=== PATIENT | male | born 1940 | race Caucasian/White ===

== ENCOUNTER → 2020-04-27 15:16 | Outpatient (BNVA) | payer OTHER, SELFPAY | PROVIDERS: Family Provider Family Medicine; Visit Provider Nurse Practitioner Family | DX: Z20.828 Contact with and (suspected) exposure to other viral communicable diseases (principal); J06.9 Acute upper respiratory infection, unspecified | CPT/HCPCS: 87635 ==

== ENCOUNTER → 2021-03-09 18:10 | Outpatient (BNVA) | payer MEDICARE, SELFPAY | PROVIDERS: Family Provider Family Medicine; Visit Provider Registered Nurse Neonatal Intensive Care | DX: Z20.822 Contact with and (suspected) exposure to COVID-19 (principal) | CPT/HCPCS: 87635 ==

== ENCOUNTER 2023-09-09 22:01 | Inpatient (IN) | payer MEDICARE, SELFPAY ==
[2023-09-09 22:02] VITALS: BP 162/84; PULSE 95; RESP 18; TEMP 36.4; O2SAT 96; BMI 36.9
--- NOTE | 2023-09-09 22:04 | XRR_ITS ---
PROCEDURE INFORMATION: Exam: XR Left Hip Exam date and time: 09/09/2023 10:26 PM Age: 83 years old Clinical indication: Injury or trauma; Fall; Other: Pain; Additional info: Fall, pain TECHNIQUE: Imaging protocol: Radiologic exam of the left hip. Views: 2 or 3 views hip with pelvis when performed. COMPARISON: No relevant prior studies available. FINDINGS: Bones/joints: On the AP view, there is concern for subcapital left femur fracture with increased density along the subcapital femoral neck and foreshortening of the femoral neck. No definite fracture on the frogleg view. There are severe degenerative changes in the left hip with prominent ring of osteophytes surrounding the left femoral head neck junction. No dislocation. No fracture in the visualized left pelvis. Soft tissues: Unremarkable. XR/XR hip LT 2-3V wo/w pel* [id number] IMPRESSION: Foreshortened appearance of the left subcapital femoral neck with concern for mildly impacted fracture on one view. CT scan is recommended for further evaluation. Note is made that the patient has severe degenerative changes in the hip with a large ring osteophytes surrounding the left femoral head neck junction.
--- NOTE | 2023-09-09 22:17 | ED_ITS ---
HPI - Fall 2 General: Chief Complaint: Fall Stated Complaint: fall, hip pain, skin tear Time Seen by Provider: 09/09/23 22:02 History of Present Illness: Patient arrived via EMS from his home with complaints of fall on his outdoor steps patient landed on his left hip and is having left hip pain and discomfort. Worse with movement of his left lower extremity. Patient did not hit anywhere else denies loss of consciousness or other complaints. Review of Systems 2 General: Reports: 10 or more systems reviewed and unremarkable except in HPI and below PFSH ED 2 PFSH: Medical History (Updated 09/10/23 @ 00:05 by Marvin Ni MD) Hyperlipidemia Hypertension Surgical History (Updated 09/10/23 @ 00:06 by Marvin Ni MD) No pertinent past surgical history Social History (Updated 09/10/23 @ 00:05 by Marvin Ni MD) Smoking and tobacco/nicotine status: former use of tobacco/nicotine Alcohol intake: former Substance/Drug Use: never Physical Exam 2 Const: COMMON NORMALS: no acute distress, average body habitus, patient oriented x3, no limitations, healthy appearing, alert and well nourished HENMT: COMMON NORMALS: normocephalic, atraumatic, hearing grossly normal bilaterally, external ears normal, Normal external nose present, moist oral mucous membranes and oropharynx normal HEAD & SCALP: normocephalic and atraumatic NOSE: Normal external nose present EXTERNAL EAR: Yes external ears normal Neck/C-Spine: COMMON NORMALS: full ROM, no lymphadenopathy, supple, no meningeal signs and no JVD Chest: COMMONS NORMALS: normal inspection of the chest and normal palpation of entire chest wall Resp: COMMON NORMALS: normal respiratory effort, No retractions, No use of accessory muscles and clear to auscultation bilaterally AUSCULTATION: clear to auscultation bilaterally Cardio: COMMON NORMALS: no JVD, regular rate, regular rhythm, S1 normal heart sound present, S2 normal heart sound present, No gallops present (Cardio), No clicks present (Cardio) and No murmurs present (Cardio) RATE: regular rate RHYTHM: regular rhythm HEART SOUNDS: S1 normal heart sound present and S2 normal heart sound present GI: COMMON NORMALS: Normal to inspection, nondistended, normoactive bowel sounds present, Soft to palpation, non-tender, No hepatosplenomegaly present and no masses PALPATION: Yes Soft to palpation and Yes No hepatosplenomegaly present Extremity: NARRATIVE EXTREMITY EXAM: Tenderness with palpation over left hip region. No obvious rotation, deformity, crepitus Neuro: COMMON NORMALS: patient oriented x3 SENSORIUM/ORIENTATION: Yes alert MENINGEAL SIGNS: Yes no meningeal signs Course 2 Vital Signs: Vital signs: Vital Signs Temperature 97.5 F L 09/09/23 22:02 Pulse Rate 81 09/10/23 00:01 Respiratory Rate 16 09/10/23 00:01 Blood Pressure 133/81 09/10/23 00:01 Pulse Oximetry 98 09/10/23 00:01 Oxygen Delivery Me thod Nasal Cannula 09/10/23 00:12 Oxygen Flow Rate 2 09/10/23 00:12 MDM - Fall Medical Decision Making Patient had x-rays of his femur, chest and hip and pelvis, they saw a left subcapital femoral neck fracture possible, severe degenerative changes of the knees. Chest x-ray was negative. Dr. Christianson was consulted who agreed that he will probably take him to surgery for this in the morning, CBC CMP PT/INR type and screen and EKG are all pending. Dr. Welch was consulted who agreed to place patient inpatient for further evaluation and treatment. Will also get a CT scan of the left hip as recommended by the radiologist. Medical Records I reviewed the patient's medical records. Lab Data I reviewed the patient's lab results. 09/09/23 22:52 09/09/23 22:52 Radiology Impressions Hip/Pelvis X-Ray 09/09/23 22:04 IMPRESSION: Foreshortened appearance of the left subcapital femoral neck with concern for mildly impacted fracture on one view. CT scan is recommended for further evaluation. Note is made that the patient has severe degenerative changes in the hip with a large ring osteophytes surrounding the left femoral head neck junction. Chest X-Ray 09/09/23 22:49 IMPRESSION: No acute findings. Unchanged exam. Femur X-Ray 09/09/23 22:55 IMPRESSION: 1. Subtle cortical step-off subcapital left femoral neck concerning for acute subcapital femur fracture best seen on the AP view. 2. Severe degenerative changes of the knee. No additional acute fracture. Laboratory Results WBC 7.86 10^3/uL (3.29-11.43) 09/09/23 22:52 RBC 4.95 10^6/uL (3.85-5.65) 09/09/23 22:52 Hgb 14.60 g/dL (11.27-16.99) 09/09/23 22:52 Hct 44.5 % (37-53) 09/09/23 22:52 MCV 89.9 fl (82-101) 09/09/23 22:52 MCH 29.5 pg (27-33) 09/09/23 22:52 MCHC 32.8 g/dL (30-55) 09/09/23 22:52 RDW 13.2 % (12.1-15.1) 09/09/23 22:52 Plt Count 239 10^3/cmm (157-399) 09/09/23 22:52 MPV 10.3 fL (7.4-10.4) 09/09/23 22:52 Neut % (Auto) 60.6 % 09/09/23 22:52 Lymph % (Auto) 26.0 % 09/09/23 22:52 Alexander % (Auto) 9.8 % 09/09/23 22:52 Eos % (Auto) 2.2 % 09/09/23 22:52 Baso % (Auto) 0.9 % 09/09/23 22:52 Neut # (Auto) 4.77 10^3/uL (1.8-7.7) 09/09/23 22:52 Lymph # (Auto) 2.0 10^3/uL (0.8-4.8) 09/09/23 22:52 Alexander # (Auto) 0.8 10^3/uL (0.2-0.9) 09/09/23 22:52 Eos # (Auto) 0.2 10^3/uL (0.0-0.8) 09/09/23 22:52 Baso # (Auto) 0.1 10^3/uL (0.0-0.1) 09/09/23 22:52 Nucleated RBC % (auto) 0 % 09/09/23 22:52 Nucleated RBCs # 0.0 /100WBC 09/09/23 22:52 PT 12.90 SECONDS (12.1-14.9) 09/09/23 22:52 INR 0.95 (0.8-1.2) 09/09/23 22:52 Sodium 140 mmol/L (136-145) 09/09/23 22:52 Potassium 4.5 mmol/L (3.5-5.1) 09/09/23 22:52 Chloride 102 mmol/L (98-107) 09/09/23 22:52 Carbon Dioxide 28 mmol/L (22-29) 09/09/23 22:52 Anion Gap 14.5 (5-19) 09/09/23 22:52 BUN 22 mg/dL (8-23) 09/09/23 22:52 Creatinine 0.7 mg/dL (0.7-1.2) 09/09/23 22:52 GFR Calculation Not Reportable 09/09/23 22:52 Glucose 107 mg/dL (65-115) 09/09/23 22:52 Calculated Osmolality 294 mOsm/kg (285-295) 09/09/23 22:52 Calcium 9.4 mg/dL (8.5-10.5) 09/09/23 22:52 Total Bilirubin 0.3 mg/dL (0.15-1.2) 09/09/23 22:52 AST 14 U/L (0-40) 09/09/23 22:52 ALT 15 U/L (0-41) 09/09/23 22:52 Alkaline Phosphatase 105 U/L (40-130) 09/09/23 22:52 Troponin T Baseline 14 ng/L (0-15) 09/09/23 22:52 Total Protein 7.4 g/dL (6.6-8.7) 09/09/23 22:52 Albumin 4.3 g/dL (3.5-5.2) 09/09/23 22:52 Globulin 3.1 g/dL (1.3-4.6) 09/09/23 22:52 Blood Type B Positive 09/09/23 23:27 Rho(D) Type Rh positive 09/09/23 23:27 Antibody Screen Negative 09/09/23 23:27 All radiology interpretation(s) finalized by discharge Discharge Plan Discharge Patient Disposition: Admitted As Inpatient Admit Provider: Marvin Ni Clinical Impression: Closed fracture of left hip, Hypertension, Hyperlipidemia Condition: Stable Coding Level of Care Code ED Bone Crusher for Bethany Mccauley
--- NOTE | 2023-09-09 22:49 | ECG_ITS ---
[facility] Test Date: 2023-09-09 Pat Name: Rey Mcleod Department: Room: Gender: Male Didactic Instructor: : 1940 Requested By: Constantino Thakur Order Number: [id number] Gunnar MD: Hugh Fleming M.D. Measurements Intervals [place] Rate: 72 P: 0 VA: 0 QRS: -41 QRSD: 155 T: 20 QT: 393 QTc: 432 Interpretive Statements SINUS RHYTHM WITH POSSIBLE 2ND DEGREE AV BLOCK, MOBITZ TYPE II LEFT AXIS DEVIATION [QRS AXIS < -30] RIGHT BUNDLE BRANCH BLOCK [120+ ms QRS DURATION, UPRIGHT V1, 40+ ms S IN I/aVL/V4/V5/V6] POSSIBLE ANTERIOR MYOCARDIAL INFARCTION , OF INDETERMINATE AGE [30 ms Q WAVE IN V3/V4, OR R < 0.2 mV IN V4] Compared to ECG 07/03/2018 09:46:34 Left-axis deviation now present Myocardial infarct finding now present First degree AV block no longer present Electronically Signed On 09-10-2023 9:16:13 CDT by Hugh Fleming M.D. [id number] paiz
--- NOTE | 2023-09-09 22:49 | XRR_ITS ---
PROCEDURE INFORMATION: Exam: XR Chest Exam date and time: 09/09/2023 10:55 PM Age: 83 years old Clinical indication: Other: HTN TECHNIQUE: Imaging protocol: Radiologic exam of the chest. Views: 1 view. COMPARISON: CR XR chest 1V [id number] 07/03/2018 10:07 AM FINDINGS: Lungs: Unremarkable. No consolidation. Pleural spaces: Unremarkable. No pleural effusion. No pneumothorax. Heart/Mediastinum: Unchanged cardiomegaly. Bones/joints: No acute abnormality. XR/XR chest 1V portable [id number] IMPRESSION: No acute findings. Unchanged exam.
--- NOTE | 2023-09-09 22:55 | XRR_ITS ---
PROCEDURE INFORMATION: Exam: XR Left Femur Exam date and time: 09/09/2023 11:02 PM Age: 83 years old Clinical indication: Injury or trauma; Fall; Other: Pain; Additional info: Fall hip FX TECHNIQUE: Imaging protocol: Radiologic exam of the left femur. Views: 2 views. COMPARISON: CR (PELVIS, ) 09/09/2023 10:26 PM FINDINGS: Bones/joints: Subtle cortical step-off subcapital left femoral neck concerning for acute fracture best seen on the AP view. No dislocation. No fracture in the visualized left hemipelvis. No acute fracture in the mid to distal femur. Severe degenerative changes left knee greatest in the patellofemoral compartment. Soft tissues: Unremarkable. XR/XR femur LT min 2V* [id number] IMPRESSION: 1. Subtle cortical step-off subcapital left femoral neck concerning for acute subcapital femur fracture best seen on the AP view. 2. Severe degenerative changes of the knee. No additional acute fracture.
[2023-09-09 22:57] LABS: Basophils # 0.1 10^3/uL (0.0-0.1); Basophils % 0.9 %; Eosinophils # 0.2 10^3/uL (0.0-0.8); Eosinophils % 2.2 %; Hematocrit 44.5 % (37-53); Mean Corpuscular HGB Conc 32.8 g/dL (30-55); Mean Corpuscular Hemoglobin 29.5 pg (27-33); Mean Corpuscular Volume 89.9 fl (82-101); Mean Platelet Volume 10.3 fL (7.4-10.4); Monocytes # 0.8 10^3/uL (0.2-0.9); Monocytes % 9.8 %; Neutrophils # 4.77 10^3/uL (1.8-7.7); Neutrophils % 60.6 %; Nucleated Red Blood Cells % 0 %; Platelet Count 239 10^3/cmm (157-399); Red Blood Count 4.95 10^6/uL (3.85-5.65); Red Cell Distribution Width 13.2 % (12.1-15.1); White Blood Count 7.86 10^3/uL (3.29-11.43)
[2023-09-09 23:09] LABS: INR 0.95 (0.8-1.2)
[2023-09-09 23:18] LABS: Alanine Aminotransferase 15 U/L (0-41); Albumin Level 4.3 g/dL (3.5-5.2); Alkaline Phosphatase 105 U/L (40-130); Anion Gap 14.5 (5-19); Aspartate Amino Transferase 14 U/L (0-40); Blood Urea Nitrogen 22 mg/dL (8-23); Calcium 9.4 mg/dL (8.5-10.5); Carbon Dioxide 28 mmol/L (22-29); Chloride 102 mmol/L (98-107); Creatinine Clr Calc Pharmacy 85.3409; Globulin 3.1 g/dL (1.3-4.6); Glucose 107 mg/dL (65-115); Osmolality Calculated 294 mOsm/kg (285-295); Potassium 4.5 mmol/L (3.5-5.1); Sodium 140 mmol/L (136-145); Total Bilirubin 0.3 mg/dL (0.15-1.2); Total Protein 7.4 g/dL (6.6-8.7)
[2023-09-09 23:25] VITALS: RESP 18
[2023-09-09] MEDS: morphine 4 mg/mL SDV 1 mL IVP (23:25)
[2023-09-09] MEDS: ondansetron 2 mg/ML SDV 2 mL 4 MG IVP (23:25)
--- NOTE | 2023-09-09 23:33 | CTR_ITS ---
PROCEDURE INFORMATION: Exam: CT Left Lower Extremity Without Contrast, Hip Exam date and time: 09/10/2023 12:15 AM Age: 83 years old Clinical indication: Injury or trauma; Fall; Other: Pain; Additional info: Fall hip FX TECHNIQUE: Imaging protocol: CT of the left lower extremity without contrast was performed. Exam focused on the hip. Radiation optimization: All CT scans at this facility use at least one of these dose optimization techniques: automated exposure control; mA and/or kV adjustment per patient size (includes targeted exams where dose is matched to clinical indication); or iterative reconstruction. COMPARISON: CR (PELVIS, ) 09/09/2023 10:26 PM RADIATION DOSE METRICS: Total DLP (mGy-cm): 650.1 FINDINGS: Bones/joints: There is an impacted left subcapital femur fracture. No dislocation. There are moderate degenerative changes in the left hip and sacroiliac joint. No additional acute fracture. There are moderate degenerative changes in the left hip with subchondral cysts especially in the acetabulum. Soft tissues: There is soft tissue edema adjacent to the left hip fracture. Urinary bladder: The bladder is distended and there is a posterior left bladder diverticulum. Reproductive: The prostate demonstrates marked nonspecific enlargement. The seminal vesicles are normal. The prostate demonstrates nonspecific parenchymal calcifications. CT/CT hip LT wo con* [id number] IMPRESSION: There is an impacted left subcapital femur fracture.
[2023-09-09 23:38] VITALS: BP 138/74; PULSE 86; RESP 16; O2SAT 92
--- NOTE | 2023-09-09 23:48 | ECG_ITS ---
[facility] Test Date: 2023-09-09 Pat Name: Rey Mcleod Department: Room: 271 Gender: Male C Architect: : 1940 Requested By: Constantino Thakur Order Number: [id number] Gunnar MD: Hugh Fleming M.D. Measurements Intervals [place] Rate: 72 P: 0 MI: 0 QRS: -41 QRSD: 155 T: 20 QT: 393 QTc: 432 Interpretive Statements SINUS RHYTHM WITH POSSIBLE 2ND DEGREE AV BLOCK MOBITZ TYPE II LEFT AXIS DEVIATION [QRS AXIS < -30] RIGHT BUNDLE BRANCH BLOCK [120+ ms QRS DURATION, UPRIGHT V1, 40+ ms S IN I/aVL/V4/V5/V6] POSSIBLE ANTERIOR MYOCARDIAL INFARCTION , OF INDETERMINATE AGE [30 ms Q WAVE IN V3/V4, OR R < 0.2 mV IN V4] Compared to ECG 07/03/2018 09:46:34 Left-axis deviation now present Myocardial infarct finding now present First degree AV block no longer present Electronically Signed On 09-10-2023 9:16:32 CDT by Hugh Fleming M.D. [id number] paiz
[2023-09-10] VITALS (16 sets, daily range): BP systolic 130–186; BP diastolic 65–94; PULSE 80–105; RESP 16–20; TEMP 36.1–37.4; O2SAT 91–98; BMI 36.1
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
--- NOTE | 2023-09-10 00:05 | PC.NURSE ---
Report was called to JEREMIAH Muñoz on Med-Surg. All questions and concerns were addressed at time of report.
[2023-09-10 00:06] LABS: Troponin(5th) Baseline 14 ng/L (0-15)
[2023-09-10 01:13] LABS: Troponin 5 2HR 12.88 ng/L (0-15)
[2023-09-10 01:16] LABS: Troponin 5 2HR Delta -1.12 ABS# (0-10)
[2023-09-10 01:23] LABS: Thyroid Stimulating Hormone 2.67 uIU/mL (0.27-4.20)
[2023-09-10] MEDS: pantoprazole 40 mg SDV IVP (01:57)
[2023-09-10 02:37] LABS: Urine Appearance Cloudy (CLEAR); Urine Color Yellow (Yellow); pH Urine 7 (5-7)
[2023-09-10 02:38] LABS: Add Urine Culture? Yes; Add Urine Microscopic? YES; Bacteria Urine 3+ /hpf; Bilirubin Urine Neg (Negative); Blood Urine 3+ (Negative); Glucose Urine UA Norm (Normal); Ketones Urine Negative (Negative); Leukocyte Esterase Urine 2+ (Negative); Mucus Urine 3+ /hpf; Nitrate Urine Positive (Negative); Protein Urine Neg (Negative); RBC Urine 15-25 /hpf (0-2); Squamous Epithelial Cell Urine 0-4 /hpf (0-5); Urobilinogen Urine Neg (Negative); WBC Urine 55-80 /hpf (0-5)
[2023-09-10 05:15] LABS: Troponin 5 6HR 10.62 ng/L (0-15); Troponin 5 6HR Delta -3.38 ng/L (0-12)
--- NOTE | 2023-09-10 09:01 | PC.PHAR ---
MEDICATIONS VERIFIED BY WHAT PT STS HE IS CURRENTLY TAKING- [facility] - WILL UPDATE WHEN RECEIVED
[2023-09-10] MEDS: morphine 4 mg/mL SDV 1 mL 2 MG IVP (11:14)
[2023-09-10] MEDS: dextrose 5%-sod chloride 0.9% 1,000 ML 50 ML IV (11:19)
--- NOTE | 2023-09-10 11:33 | PC.NURSE ---
This RN rounding on patient and patient expressed that he was aggravated at the CELLAR SUPERVISOR due to having a full urinal at the bedside not being emptied. Patient stated he asked the CELLAR SUPERVISOR twice to empty it and walked by it without emptying it. Patient said he called his to come empty it. This nurse spoke with nurse quarrying manager and charge nurse about the situation and this nurse let the patient know that I would be more than willing to empty it for him. This nurse emptied urinal during this round. Patient rated pain an 8/10 and medication was administered by this nurse. Patient has since stated he is calm and understanding.
--- NOTE | 2023-09-10 14:36 | P.PN_ITS ---
Subjective 2 Subjective: Overnight labs and H&P reviewed. Patient planned for surgical intervention later today at 5 PM. No current acute complaints. Has mild pain. Anxious about surgery. Medications: Reviewed: Yes Vitals/I&O/Wt Last Vital Signs Temp 98.0 F 09/10/23 07:42 Pulse 101 H 09/10/23 11:44 Resp 17 09/10/23 11:44 BP 186/94 09/10/23 11:44 Pulse Ox 96 09/10/23 11:44 O2 Del Method Room Air 09/10/23 11:44 O2 Flow Rate 2 09/10/23 00:12 09/09/23 09/10/23 09/10/23 22:59 06:59 14:59 Output Total 400 / 400 400 / 400 Balance -400 / -400 -400 / -400 Weight last 48 hrs Weight 111.782 kg Weight 110.903 kg Weight 113.398 kg Physical Exam 2 Narrative: General: No acute distress, AO x3 HEENT: PERRLA, pupils bilaterally equal and reactive, pallors not present Chest: Normal vesicular breath sounds, no added sounds, equal good air entry bilaterally CVS: S1-S2 regular, no murmurs, no tachycardia, no gallops, no rubs Abdomen: Soft, nontender, no organomegaly, bowel sounds present Neuro: No focal deficits, no facial deformity, AO x3, power 5/5 in all limbs Extremities: No edema clubbing or cyanosis. Data 09/09/23 22:52 09/09/23 22:52 A&P Assessment and plan (1) Closed fracture of left hip: Plan for surgical intervention today. N.p.o. for surgery D5 normal saline at 50 cc an hour while awaiting surgical intervention. As needed morphine for pain management. Qualifiers: Encounter type: initial encounter Qualified Code(s): S72.002A - Fracture of unspecified part of neck of left femur, initial encounter for closed fracture (2) Obstructive sleep apnea: He uses CPAP at nighttime. CPAP ordered for hospital use. Denies any current dyspnea chest pain palpitations. (3) Right bundle branch block: Incidentally noted right bundle branch block with PVCs Patient denies any current chest pain dyspnea or palpitations. Likely to be an incidental finding, perhaps related to long standing sleep apnea, no prior EKG to compare. Troponin series unremarkable. (4) Hypertension: Continue home dose of lisinopril 5 mg p.o. every night. As needed hydralazine as needed Qualifiers: Hypertension type: unspecified Qualified Code(s): I10 - Essential (primary) hypertension (5) Hyperlipidemia: Continue atorvastatin 20 mg p.o. daily Qualifiers: Hyperlipidemia type: unspecified Qualified Code(s): E78.5 - Hyperlipidemia, unspecified Plan DVT prophylaxis: Lovenox to be started postsurgery DNR/DNI Attestations 2 Medical Necessity Statement*: Continued admission for surgical intervention today. Coding Level of Care Code Acute Code for [facility] Fwd Diagnoses Closed fracture of left hip S72.002A Encounter type: initial encounter Obstructive sleep apnea G47.33 Right bundle branch block I45.10 Hypertension I10 Hypertension type: unspecified Hyperlipidemia E78.5 Hyperlipidemia type: unspecified
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
[2023-09-10] MEDS: hyDRALAzine 20 mg/mL INJ 1 mL 10 MG IVP (15:14)
--- NOTE | 2023-09-10 15:17 | PC.NURSE ---
Patient left the floor at 1517 with surgery staff. Given 10 mg IV push Hydralazine for blood pressure 165/73 prior to leaving the floor. Patient was called per request that he was leaving the floor, but no answer.
[2023-09-10] MEDS: sodium chloride 0.9% 1,000 ML 30 ML IV (15:30)
[2023-09-10] MEDS: acetaminophen 1,000 MG/100 ML PIGGYBACK 400 MG IV (15:33)
[2023-09-10] MEDS: ketorolac 30 mg/mL INJ IVP (15:34)
[2023-09-10] MEDS: vancomycin 1,500 MG/300 ML PIGGYBACK 200 MG IV (15:51)
[2023-09-10 16:39] LABS: NT Pro B Type Natriuretic Pept 107 pg/mL (0-450)
--- NOTE | 2023-09-10 16:42 | P.ANESASSM_ITS ---
Pre-Anesthetic Assessment Height/Weight: Height 1.75 m Weight 111.782 kg Temp Pulse Resp BP Pulse Ox O2 Del Method O2 Flow Rate 99.3 F 90 16 141/69 94 Room Air 2 09/10/23 15:25 09/10/23 15:25 09/10/23 15:25 09/10/23 15:25 09/10/23 15:25 09/10/23 15:25 09/10/23 00:12 Preop Diagnosis: Left femoral neck fracture Operation Date: 09/10/23 17:05 Proposed Procedures p Hemiarthroplasty Hip(Left) - Rishabh Christianson, Familial anesthetic complications: None Was Beta Clem taken within 24 hours: N/A Was Clonidine taken within 24 hours: N/A Last intake: > 8hrs Social No alcohol and No tobacco Exam alert, oriented x 3, clear to auscultation bilaterally and regular rate & rhythm Airway Mallampati: Class III Dentition: other (missing) Pulmonary Sleep Apnea CV/HEM Hypertension RBBB Metabolic Hyperlipidemia and Morbid Obesity Anesthetic Plan ASA status: 3 Anesthesia: General Risk of > 500 ml blood loss (7ml/kg in children): No Other Pertinent Information Discussed patient's code status during surgery with family at bedside. States he is ok with intubation, shocks, fluid resuscitation and pharmaceutical interventions. Does not wish to have chest compressions. Medications/Allergies Home Medications Medication Instructions Recorded Confirmed Last Taken Type atorvastatin 20 mg tablet 20 mg PO QPM 09/10/23 09/10/23 Unknown History cholecalciferol (vitamin D3) 50 50 mcg PO QPM 09/10/23 09/10/23 Unknown History mcg (2,000 unit) capsule (Vitamin D3) lisinopril 10 mg tablet 5 mg PO QPM 09/10/23 09/10/23 Unknown History tamsulosin 0.4 mg capsule 0.8 mg PO QPM 09/10/23 09/10/23 Unknown History Allergies Allergy/AdvReac Type Severity Reaction Status Date / Time cephalexin [From Keflex] Allergy Intermediate Rash Verified 09/09/23 22:07 Current Medications Generic Name Dose Route Start Last Admin Trade Name Freq PRN Reason Stop Dose Admin Hydralazine HCl 10 mg 09/10/23 14:36 09/10/23 15:14 Hydralazine 20 Mg/Ml Inj 1 Ml IVP 10 mg Q4H PRN Administration SBP > 160 Dextrose/Sodium Chloride 1,000 mls @ 50 mls/hr 09/10/23 11:00 09/10/23 11:19 Dextrose 5%-Sod Chloride 0.9% IV 50 mls/hr .Q20H JOSEPH Administration Vancomycin/PEG/NADA/Lysine/Water 1,500 mg in 300 mls @ 200 mls/hr 09/10/23 15:30 09/10/23 15:51 Vancocin IV 09/10/23 16:59 200 mls/hr ONCE ONE Administration Sodium Chloride 1,000 mls @ 30 mls/hr 09/10/23 15:30 09/10/23 15:30 Sodium Chloride 0.9% IV 09/11/23 15:29 30 mls/hr .Q24H JOSEPH Administration Morphine Sulfate 2 mg 09/10/23 00:08 09/10/23 11:14 Morphine 4 Mg/Ml Sdv 1 Ml IVP 2 mg Q4H PRN Administration SEVERE PAIN Pantoprazole Sodium 40 mg 09/10/23 01:00 09/10/23 01:57 Pantoprazole 40 Mg Sdv IVP 40 mg Q24H JOSEPH Administration PFSH Anesthesia Medical History (Updated 09/10/23 @ 14:41 by Silvia Drake MD) Hyperlipidemia Hypertension Surgical History (Updated 09/10/23 @ 00:06 by Marvin Ni MD) No pertinent past surgical history Social History (Updated 09/10/23 @ 00:05 by Marvin Ni MD) Smoking and tobacco/nicotine status: former use of tobacco/nicotine Alcohol intake: former Substance/Drug Use: never Data Anesthesia 09/09/23 22:52 09/09/23 22:52 Short CBC 09/09/23 Range/Units 22:52 WBC 7.86 (3.29-11.43) 10^3/uL Hgb 14.60 (11.27-16.99) g/dL Hct 44.5 (37-53) % MCV 89.9 (82-101) fl Plt Count 239 (157-399) 10^3/cmm Neut % (Auto) 60.6 % Neut # (Auto) 4.77 (1.8-7.7) 10^3/uL BMP 09/09/23 22:52 Sodium 140 Potassium 4.5 Chloride 102 Carbon Dioxide 28 BUN 22 Creatinine 0.7 Glucose 107 Calcium 9.4 Cardiac Enzymes 09/09/23 09/10/23 09/10/23 Range/Units 22:52 00:40 04:40 Troponin T Baseline 14 (0-15) ng/L Troponin T 120 Minute 12.88 (0-15) ng/L Delta Troponin T -1.12 L (0-10) ABS# Troponin T Hi Sens 6Hr 10.62 (0-15) ng/L Troponin T Hi Sens 6Hr Delta -3.38 L (0-12) ng/L NT-Pro-B Natriuret Pep 107 (0-450) pg/mL Liver Function 09/09/23 Range/Units 22:52 Total Bilirubin 0.3 (0.15-1.2) mg/dL AST 14 (0-40) U/L ALT 15 (0-41) U/L Alkaline Phosphatase 105 (40-130) U/L Albumin 4.3 (3.5-5.2) g/dL Urine 09/10/23 Range/Units 02:19 Urine Color Yellow (Yellow) Urine Appearance Cloudy A (CLEAR) Urine pH 7 (5-7) Ur Specific Andrew 1.010 (1.005-1.030) Urine Protein Neg (Negative) Urine Glucose (UA) Norm (Normal) Urine Ketones Negative (Negative) Urine Nitrate Positive H (Negative) Urine Bilirubin Neg (Negative) Ur Leukocyte Esterase 2+ H (Negative) Urine RBC 15-25 H (0-2) /hpf Urine WBC 55-80 H (0-5) /hpf Blood Bank 09/09/23 23:27 Blood Type B Positive Rho(D) Type Rh positive Antibody Screen Negative Coags 09/09/23 22:52 PT 12.90 INR 0.95 Cardiac Studies: 2 No Data to Display
--- NOTE | 2023-09-10 17:21 | W.PM.OPSUD ---
Surgery/Procedure H&P Update DATE OF PROCEDURE: September 10, 2023 DATE H&P PERFORMED: 09/10/23 H&P UPDATE INFORMATION: I have reviewed H&P completed within last 30 days, I have examined patient prior to procedure and No changes to prior documentation PREOP DIAGNOSIS: Left femoral neck fracture PRIMARY INDICATION FOR PROCEDURE: Left hip femoral neck fracture PLANNED PROCEDURE: Operation Date: 09/10/23 17:05 Proposed Procedures p Hemiarthroplasty Hip(Left) - Rishabh Christianson DO
[2023-09-10] MEDS: clindamycin 600 MG/50 ML PREMIX 100 MG IV (18:14)
[2023-09-10] MEDS: tranexamic acid 1,000 mg/10mL SDV 1000 MG IV (18:39)
--- NOTE | 2023-09-10 18:52 | PC.NURSE ---
Updated patient's family of start of surgery
[2023-09-10] MEDS: vancomycin 1,000 MG SDV 2000 MG XX (19:13)
--- NOTE | 2023-09-10 19:52 | PC.NURSE ---
Updated patient's that Doctor Christianson was beginning to close on surgery.
--- NOTE | 2023-09-10 20:21 | XRR_ITS ---
PROCEDURE INFORMATION: Exam: XR Left Hip Exam date and time: 09/10/2023 7:37 PM Age: 83 years old Clinical indication: Device placement; Other: L hip kacie; Additional info: Post op left hip kacie, do in pacu TECHNIQUE: Imaging protocol: Radiologic exam of the left hip. Views: 2 or 3 views hip with pelvis when performed. COMPARISON: CT hip LT wo con* [id number] 09/10/2023 12:15 AM FINDINGS: Bones/joints: Left hip arthroplasty changes in place with postsurgical soft tissue changes. Moderate right hip osteoarthritis. Soft tissues: See Bones/joints finding. XR/XR hip LT 2-3V wo/w pel* [id number] IMPRESSION: 1. Left hip arthroplasty changes in place with postsurgical soft tissue changes. 2. Moderate right hip osteoarthritis.
--- NOTE | 2023-09-10 20:25 | P.OP_ITS ---
Operative Report Date of procedure: September 10, 2023 Surgeon: Rishabh Christianson DO Regional Director Of Admissions: Ralph Christianson PA-C: PA was necessary for assistance in this case with leg positioning, reduction retraction and protection of neurovascular structures as well as assistance in implantation wound closure and dressing application. Procedure: Preoperative diagnosis: Left hip femoral neck fracture displaced post-op diagnosis: Same Procedure done: Left?hip?hemiarthroplasty, cemented Implants: [place] Accolade C 132 degree femoral stem size 3 Bipolar head 51 mm Femoral head +4 mm offset 8mm distal cement spacer Surgeon: Rishabh Christianson DO Estimated blood loss: 150 mL IV fluids: See anesthesia record Urine output: See anesthesia record Complications: None Findings: See operative report Condition: stable Disposition: floor Brief History: Patient was seen in the emergency department and subsequently admitted after fall.? Patient sustained a Left femoral neck fracture.? Patient was subsequently admitted by the hospitalist team for medical management and medical optimization and the orthopedic surgery team was consulted for evaluation and treatment recommendations.? At that point time discussed with patient? treatment options.? We talked about nonoperative versus operative intervention talked about the risk benefits complication alternatives to surgical nonsurgical treatment options.? Risks of surgery were discussed and pt understands and agrees to proceed with procedure.? At this point time would recommend a Left?hip?hemiarthroplasty.? This will offer patient pain control as well as early weightbearing.? Patient was medically optimized by the primary team pt was then taken to the OR.? Patient understands risk benefits complication alternativ es with surgical nonsurgical treatment options.? At this point time elects to proceed with Left?hip?hemiarthroplasty.? All questions answered.? Patient understands agrees with current plan.? All questions answered. Procedure: Patient seen evaluated the preoperative holding area.? Consent was reviewed and signed with patient.? ?Pt was seen evaluated by the anesthesia department.? Once cleared for surgery patient patient was taken back to the operative suite.? Patient was then transported onto the OR table.? pt underwent anesthesia per the anesthesia department.? Once appropriately anesthetized patient was then positioned in lateral decubitus position with the Left?hip?up.? Patient was placed on a pegboard appropriately secured to the bed all bony prominences well- padded.? Next the Left lower extremity was then prepped and draped in sterile orthopedic fashion.? Final timeout performed.? Patient received appropriate preoperative antibiotics. A standard posterolateral approach was then made over the lateral aspect of the?hip.? Sharp scalpel incision was made through skin and subcutaneous tissue I then utilized a Granado elevator to mobilize over the fascia.? The fascia was then split longitudinally with electrocautery.? Next a bursectomy was then performed.? I then placed Hohmann underneath the abductors.? The?hip?was placed under tension with internal rotation.? I then utilizing electrocautery performed a full-thickness release of the short external rotators and capsule in 1 full thick sleeve for lateral repair.? This was then taken down to the lesser trochanter.? Immediately on capsulotomy hematoma was noticed and displaced femoral neck fracture appreciated.? I then placed a Hohmann above and below the neck.? I then utilized an oscillating saw to freshen the cut this was roughly a fingerbreadth above the lesser.? Once this was performed this excess was removed with rongeur.? ?I then utilized a corkscrew to remove the head.? This was then subsequently sized and measured to be a 51 mm head size.? I then thoroughly irrigated the acetabulum.? A Hohmann was placed anteriorly and thorough inspection of the acetabulum no significant arthritic changes were noted.? I then utilized a rongeur and Bovie to remove the pulvinar.? Once this was performed I then subsequently took my trial 51 mm head and trialed this which had excellent fit and appropriate suction fit noted.? This was then subsequently removed. Once this was performed I irrigated the socket and then turned my attention towards the femoral preparation.? I utilized Bovie and rongeur to remove the soft tissue off of the saddle.? Once this was done a box osteotome followed by a canal finder and? lateralizing rattail rasp was used to appropriately lateralized in the canal.? Next I then subsequently broached to a size 3 Accolade C. [place] femoral stem which had appropriate fixation.? I was able to trial with this and this appeared to be appropriate length with ability to add slight offset if needed once cemented.? Once this was done I then removed the size 3 femoral stem and then subsequently proceeded with standard cementation technique.? Cement was mixed on the back table the final implant was opened and appropriately measurement on distal cement plug to accommodate the cement mantle and femoral stem.? This was set and impacted in place to appropriate depth.? Next I utilized the cement brush thoroughly irrigated the canal and then dry the canal tampon.? Once cement was appropriately mixed and ready for cementation informed anesthesia and they optimize patient's oxygenation cement was then impacted using cement gun and then was subsequently pressurized.?? The femoral stem size 3 was then impacted in place with appropriate anteversion and held into place and all excess cement was removed and allowed to cure once cured I then trialed up to +4mm size head which at that point there was which had excellent leg lengths as well as appropriate shuck, and excellent stability in all planes of motion with no evidence of instability.? At this point this was determined to being my final femoral head size.? This was subsequently dislocated the trial head was then removed the final implant of bipolar head 51 mm with a +4 mm offset was then opened.? The trunnion was then cleaned and dried and this was impacted in place with excellent fixation.? I then reduced the?hip?this had excellent stability and appropriate leg lengths.? The wound bed was then thoroughly irrigated.? I then utilizing #5 Ethibond suture performed my repair of the capsule and short external rotators through bone tunnels.? ?Wound bed was then thoroughly irrigated,1 gram vanco powder placed in wound bed.? IT band was closed with strata fix suture and the deep subcutaneous and subcutaneous layers were closed with 0 strata fix and 2-0 strata fix.? Skin was then closed reapproximated with te.? Rodolfo dressing applied.? Patient placed in abduction pillow posterior?hip?precautions.? pt? was awakened from anesthesia and taken to PACU in stable condition Disposition: Patient taken to PACU in stable condition will receive appropriate discharge directions as well as pain medication DVT prophylaxis postoper atively.? Patient? will return to the floor postoperatively.? Patient will be weightbearing as tolerated to the Left lower extremity.? Posterior?hip?precautions. Abduction pillow in place.? DVT prophylaxis, pain medication, postoperative antibiotics and TXA.? Patient will work with PT/OT and discharge services for discharge planning.? Patient understands agrees with current plan.? All questions answered.? ?patient will? see me in the office in 2 weeks.
[2023-09-10] MEDS: fentaNYL 50 mcg/mL INJ 2mL IVP (20:38)
--- NOTE | 2023-09-10 20:40 | W.PM.BPON ---
Date of Procedure: [September 10, 2023] Surgeon: [Dr. Meghan DO] Recreational Sports Director(s): [Ralph Christianson PA-C] Procedure(s) performed: [Left hip hemiarthroplasty with cement] Findings of the procedure(s): Left hip femoral neck fracture Estimated blood loss: [150 ml] Specimen(s) removed: [left Femoral head removed] Post-operative diagnosis: [Left hip femoral neck fracture]
--- NOTE | 2023-09-10 20:42 | PM.PACU ---
PACU note Narrative: Patient is 83-year-old male just underwent a left hip hemiarthroplasty. Pt transferred to PACU in stable condition. Dressing is dry. pt is awake and alert. pt can wiggle toes and plantarflex and dorsiflex foot. Distal pulses are palpable, toes are warm and well-perfused. Cap refill is normal and under 2 seconds. sensation to foot intact. Pain is controlled. Exam: awake Disposition: back to floor
--- NOTE | 2023-09-10 21:00 | ANE.PACU2 ---
Inpatient post-anesthesia follow up: Airway intact: Yes Vital signs: Temperature 98.4 F Pulse Rate 84 Respiratory Rate 16 Blood Pressure 125/84 Pulse Oximetry 91 Oxygen Delivery Me thod Room Air Oxygen Flow Rate 2 Fraction of Inspir ed Oxygen Hydration adequate: Yes Nausea and vomiting: No Pain level: 1 Mental status: Baseline
[2023-09-10] MEDS: lactated ringers 1,000 ML 100 ML IV (21:55)
[2023-09-11] VITALS (13 sets, daily range): BP systolic 116–164; BP diastolic 63–98; PULSE 75–101; RESP 16–18; TEMP 36.4–36.9; O2SAT 91–98
[2023-09-11] MEDS: pantoprazole 40 mg SDV IVP (00:42)
[2023-09-11] MEDS: clindamycin 900 MG/50 ML PREMIX 100 MG IV ×3 (02:31→17:40)
[2023-09-11] MEDS: tranexamic acid 1,000 MG/100 ML PREMIX 600 MG IV (03:32)
[2023-09-11 05:03] LABS: Basophils % 0.2 %; Hematocrit 43.1 % (37-53); Lymphocytes # 0.7 10^3/uL (0.8-4.8); Lymphocytes % 6.2 %; Mean Corpuscular HGB Conc 31.3 g/dL (30-55); Mean Corpuscular Hemoglobin 29.5 pg (27-33); Mean Corpuscular Volume 94.1 fl (82-101); Mean Platelet Volume 10.5 fL (7.4-10.4); Monocytes # 0.5 10^3/uL (0.2-0.9); Monocytes % 4.8 %; Neutrophils # 9.93 10^3/uL (1.8-7.7); Neutrophils % 88.4 %; Nucleated Red Blood Cells % 0 %; Platelet Count 205 10^3/cmm (157-399); Red Blood Count 4.58 10^6/uL (3.85-5.65); Red Cell Distribution Width 13.5 % (12.1-15.1); White Blood Count 11.24 10^3/uL (3.29-11.43)
[2023-09-11 05:24] LABS: Alanine Aminotransferase 12 U/L (0-41); Albumin Level 3.7 g/dL (3.5-5.2); Alkaline Phosphatase 75 U/L (40-130); Anion Gap 13.4 (5-19); Aspartate Amino Transferase 17 U/L (0-40); Blood Urea Nitrogen 13 mg/dL (8-23); Calcium 8.4 mg/dL (8.5-10.5); Carbon Dioxide 25 mmol/L (22-29); Chloride 106 mmol/L (98-107); Creatinine Clr Calc Pharmacy 85.1756; Globulin 2.6 g/dL (1.3-4.6); Glucose 163 mg/dL (65-115); Magnesium 1.9 mg/dL (1.7-2.3); Osmolality Calculated 294 mOsm/kg (285-295); Phosphorus 3.2 mg/dL (2.5-4.5); Potassium 4.4 mmol/L (3.5-5.1); Sodium 140 mmol/L (136-145); Total Bilirubin 0.4 mg/dL (0.15-1.2); Total Protein 6.3 g/dL (6.6-8.7)
[2023-09-11] MEDS: ketorolac 30 mg/mL INJ 15 MG IVP ×2 (06:38→18:03)
[2023-09-11] MEDS: calcium carb-vit d 600mg/400unit 1 Tablet 1 EACH PO ×2 (09:07→17:40)
[2023-09-11] MEDS: oxyCODONE 5 mg IR Tab/Cap PO ×2 (09:07→20:25)
[2023-09-11] MEDS: mupirocin oint 22 gm 1 APPLIC NASAL ×2 (09:07→17:40)
[2023-09-11] MEDS: enoxaparin 30 mg/0.3 mL Syringe SUBCUT (09:07)
[2023-09-11] MEDS: iron polysaccharide complex 150 mg Capsule PO ×2 (09:07→17:39)
[2023-09-11] MEDS: multivitamin therapeutic Tablet 1 TAB PO (09:07)
[2023-09-11] MEDS: sennosides-docusate Tablet 2 TAB PO ×2 (09:07→17:39)
[2023-09-11] MEDS: chlorhexidine gluconate 0.12% Btl 473 mL 30 ML MUCOUS MEM ×2 (09:08→17:40)
[2023-09-11] MEDS: lactated ringers 1,000 ML 100 ML IV (09:08)
--- NOTE | 2023-09-11 13:45 | P.PN_ITS ---
Subjective 2 Subjective: Patient seen and examined this afternoon he is recovering well progressing well with therapy family at bedside this postoperative discharge instructions Follow-up with me in the office in 2 weeks. Vitals/I&O/Wt Last Vital Signs Temp 98.9 F 09/12/23 20:00 Pulse 84 09/12/23 22:11 Resp 18 09/12/23 20:00 BP 123/68 09/12/23 20:00 Pulse Ox 96 09/12/23 22:11 O2 Del Method Room Air 09/12/23 11:18 O2 Flow Rate 2 09/11/23 02:56 FiO2 21 09/12/23 22:11 09/12/23 09/12/23 09/13/23 14:59 22:59 06:59 Intake Total 480 / 480 600 / 1080 Output Total 375 / 375 Balance 480 / 480 225 / 705 Weight last 48 hrs Weight 249 lb 1 oz Weight 249 lb 1 oz Physical Exam 2 Narrative: Dressing to the left hip is clean dry and intact, patient is able to tolerate gentle hip range of motion movement stills, plantarflex and dorsiflex ankle sensations intact to light touch distally. Distal pulses are palpable appropriate leg lengths clinically. Normal postoperative swelling compartments are soft and compressible calf soft and nontender Urinary Catheter Management: Antunez: Cath Placed During This Visit: yes Reason for Continuing Indwelling Catheter: Acute Urinary Retention or Obstruction Urinary Catheter Date of Insertion: 09/11/23 Urinary Catheter Time of Insertion: 21:55 Data 09/13/23 05:06 09/13/23 05:06 Micro: Microbiology 09/10/23 02:19 Urine Culture - Final Urine,Clean Catch Xray Ortho: My impression: X-rays multiple views of left hip reviewed in person interpreted by myself demonstrating a stable cemented left hip hemiarthroplasty evidence of periprosthetic fracture dislocation appropriate leg lengths appreciated. A&P Assessment and plan (1) Closed fracture of left hip: Qualifiers: Encounter type: initial encounter Qualified Code(s): S72.002A - Fracture of unspecified part of neck of left femur, initial encounter for closed fracture Plan Weightbearing as tolerated to the operative extremity Pain control DVT prophylaxis Change dressing as needed PT/OT Posterior hip precautions Ice as needed for pain and swelling Labs reviewed X-rays reviewed Orthopedics will continue to follow. Attestations 2 Medical Necessity Statement*: Ongoing care status post left hip hemiarthroplasty Coding Level of Care Code Acute Code for Chg Fwd Diagnoses Closed fracture of left hip S72.002A Encounter type: initial encounter
--- NOTE | 2023-09-11 15:23 | P.PN_ITS ---
Subjective 2 Subjective: pain is well controlled. Participated with physical therapy today. Wore CPAP overnight. No new complaints today. Medications: Reviewed: Yes Vitals/I&O/Wt Last Vital Signs Temp 98.4 F 09/11/23 04:47 Pulse 83 09/11/23 11:18 Resp 16 09/11/23 11:18 BP 116/63 09/11/23 11:18 Pulse Ox 93 09/11/23 11:18 O2 Del Method Room Air 09/11/23 11:18 O2 Flow Rate 2 09/11/23 02:56 09/11/23 09/11/23 09/11/23 06:59 14:59 22:59 Intake Total 1310 / 2860 1530 / 1530 1000 / 2530 Output Total 500 / 1800 400 / 400 Balance 810 / 1060 1130 / 1130 1000 / 2130 Weight last 48 hrs Weight 112.973 kg Weight 111.782 kg Weight 110.903 kg Weight 113.398 kg Physical Exam 2 Narrative: General: No acute distress, AO x3 HEENT: PERRLA, pupils bilaterally equal and reactive, pallors not present Chest: Normal vesicular breath sounds, no added sounds, equal good air entry bilaterally CVS: S1-S2 regular, no murmurs, no tachycardia, no gallops, no rubs Abdomen: Soft, nontender, no organomegaly, bowel sounds present Neuro: No focal deficits, no facial deformity, AO x3, power 5/5 in all limbs Extremities: No edema clubbing or cyanosis. Urinary Catheter Management: Antunez: Cath Placed During This Visit: yes Urinary Catheter Date of Insertion: 09/10/23 Urinary Catheter Time of Insertion: 18:30 Data 09/11/23 04:33 09/11/23 04:33 Micro: Microbiology 09/10/23 02:19 Urine Culture - Preliminary Urine,Clean Catch A&P Assessment and plan (1) Closed fracture of left hip: Plan for surgical intervention today. N.p.o. for surgery D5 normal saline at 50 cc an hour while awaiting surgical intervention. As needed morphine for pain management. Qualifiers: Encounter type: initial encounter Qualified Code(s): S72.002A - Fracture of unspecified part of neck of left femur, initial encounter for closed fracture (2) Obstructive sleep apnea: He uses CPAP at nighttime. CPAP ordered for hospital use. Denies any current dyspnea chest pain palpitations. (3) Right bundle branch block: Incidentally noted right bundle branch block with PVCs Patient denies any current chest pain dyspnea or palpitations. Likely to be an incidental finding, perhaps related to long standing sleep apnea, no prior EKG to compare. Troponin series unremarkable. (4) Hypertension: Continue home dose of lisinopril 5 mg p.o. every night. As needed hydralazine as needed Qualifiers: Hypertension type: unspecified Qualified Code(s): I10 - Essential (primary) hypertension (5) Hyperlipidemia: Continue atorvastatin 20 mg p.o. daily Qualifiers: Hyperlipidemia type: unspecified Qualified Code(s): E78.5 - Hyperlipidemia, unspecified Plan DVT prophylaxis: Lovenox to be started postsurgery DNR/DNI Plan for today September 11, 2023. Pain is currently well-controlled. He is status post left hip hemiarthroplasty on September 10, 2023.participating with physical therapy. Likely to benefit from continued skilled rehab postdischarge. Would prefer to arrange home health services and home PT.. Discontinue IV fluids. Patient is eating and drinking well currently. Attestations 2 Medical Necessity Statement*: Ongoing therapy, appropriate disposition planning ongoing. Coding Level of Care Code Acute Code for g Fwd Diagnoses Closed fracture of left hip S72.002A Encounter type: initial encounter Obstructive sleep apnea G47.33 Right bundle branch block I45.10 Hypertension I10 Hypertension type: unspecified Hyperlipidemia E78.5 Hyperlipidemia type: unspecified
[2023-09-11] MEDS: tamsulosin 0.4 mg Capsule 0.800000000000000044 MG PO (17:39)
[2023-09-11] MEDS: atorvastatin 40 mg Tablet 20 MG PO (17:39)
[2023-09-11] MEDS: lisinopril 5 mg Tablet PO (17:40)
[2023-09-12] VITALS (14 sets, daily range): BP systolic 107–157; BP diastolic 51–74; PULSE 80–109; RESP 16–18; TEMP 36.7–37.2; O2SAT 92–96
[2023-09-12] MEDS: pantoprazole 40 mg SDV IVP (00:13)
[2023-09-12] MEDS: oxyCODONE 5 mg IR Tab/Cap PO ×2 (03:22→07:38)
[2023-09-12 05:23] LABS: Basophils # 0.1 10^3/uL (0.0-0.1); Basophils % 0.8 %; Eosinophils # 0.3 10^3/uL (0.0-0.8); Eosinophils % 3.2 %; Hematocrit 35.7 % (37-53); Lymphocytes # 1.1 10^3/uL (0.8-4.8); Lymphocytes % 12.5 %; Mean Corpuscular HGB Conc 33.3 g/dL (30-55); Mean Corpuscular Hemoglobin 30.3 pg (27-33); Mean Corpuscular Volume 90.8 fl (82-101); Mean Platelet Volume 10.7 fL (7.4-10.4); Monocytes # 0.8 10^3/uL (0.2-0.9); Monocytes % 8.8 %; Neutrophils # 6.41 10^3/uL (1.8-7.7); Neutrophils % 74.5 %; Nucleated Red Blood Cells % 0 %; Platelet Count 171 10^3/cmm (157-399); Red Blood Count 3.93 10^6/uL (3.85-5.65); Red Cell Distribution Width 13.3 % (12.1-15.1); White Blood Count 8.62 10^3/uL (3.29-11.43)
[2023-09-12 05:43] LABS: Alanine Aminotransferase 11 U/L (0-41); Albumin Level 3.3 g/dL (3.5-5.2); Alkaline Phosphatase 64 U/L (40-130); Anion Gap 13.8 (5-19); Aspartate Amino Transferase 18 U/L (0-40); Blood Urea Nitrogen 16 mg/dL (8-23); Calcium 8.2 mg/dL (8.5-10.5); Carbon Dioxide 25 mmol/L (22-29); Chloride 102 mmol/L (98-107); Creatinine Clr Calc Pharmacy 85.1756; Globulin 2.5 g/dL (1.3-4.6); Glucose 137 mg/dL (65-115); Magnesium 1.8 mg/dL (1.7-2.3); Osmolality Calculated 287 mOsm/kg (285-295); Phosphorus 2.6 mg/dL (2.5-4.5); Potassium 3.8 mmol/L (3.5-5.1); Sodium 137 mmol/L (136-145); Total Bilirubin 0.7 mg/dL (0.15-1.2); Total Protein 5.8 g/dL (6.6-8.7)
--- NOTE | 2023-09-12 08:58 | PC.CHAP ---
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 [] Patient/Family/Request visit [] Outpatient visit [] Follow-up visit [] Physician referral [] Code/Alert [x] Routine visit [] Staff referral [] Actively dying [] Patient sleeping [] Family support [] [] Out of room [] Palliative care [] [] Receiving care in room [] Pre-surgical visit [] Trauma [] Long length of stay [] ICU visit [] Other: Relational/Emotional Strength [x] Patient feels connected with others/family/visitors/staff [] Distress [] Loneliness/isolation [] Abandonment Spirituality of Patient [] Person of Kari [] Attends Jewish of their Kari [] Believes in Prayer [] Reads Bible or Taoism materials [x] There are Spiritual issues to be addressed 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 Interventions [] Prayer [x] Active listening [x] Non-anxious presence [] Spiritual/emotional support [] Crisis/trauma care [] Spiritual counseling [] Bereavement support [] Provided bereavement packet [] Provided Bible/devotional materials [] Provided toy/stuffed animal, coloring book to patient or family member [] Provided Communion [] Anointing/[place] [] Salvation [x] Completed spiritual assessment [] Other: Impact on Illness or Injury [] Angry [] Fearful [] Anxious [] Often cries [] Exhaustion [] Unable to work [] Unable to attend spiritism [] Unable to walk/stand [] Unable to read [] Unable to drive [] Unable to eat/drink [] Unable to sleep [] Unable to be with family [] Patient intubated [] Other: Summary Time spent with patient 5 min.
[2023-09-12] MEDS: sennosides-docusate Tablet 2 TAB PO ×2 (09:14→18:10)
[2023-09-12] MEDS: iron polysaccharide complex 150 mg Capsule PO ×2 (09:14→18:10)
[2023-09-12] MEDS: calcium carb-vit d 600mg/400unit 1 Tablet 1 EACH PO ×2 (09:14→18:10)
[2023-09-12] MEDS: enoxaparin 30 mg/0.3 mL Syringe SUBCUT (09:14)
[2023-09-12] MEDS: multivitamin therapeutic Tablet 1 TAB PO (09:14)
[2023-09-12] MEDS: chlorhexidine gluconate 0.12% Btl 473 mL 30 ML MUCOUS MEM ×3 (09:23→21:09)
[2023-09-12] MEDS: mupirocin oint 22 gm 1 APPLIC NASAL (09:24)
--- NOTE | 2023-09-12 13:13 | P.PN_ITS ---
Subjective 2 Subjective: Patient seen and examined today sitting up in his chair at bedside. He is continuing to progress with therapy. Some issues with pain medication but it is overall controlled with his pain medication at this time. Patient had his Antunez removed states he has had some urinary retention requiring straight catheterization. Vitals/I&O/Wt Last Vital Signs Temp 98.1 F 09/12/23 11:18 Pulse 109 H 09/12/23 11:52 Resp 16 09/12/23 11:18 BP 114/67 09/12/23 11:52 Pulse Ox 96 09/12/23 11:18 O2 Del Method Room Air 09/12/23 11:18 O2 Flow Rate 2 09/11/23 02:56 FiO2 21 09/11/23 22:20 09/11/23 09/12/23 09/12/23 22:59 06:59 14:59 Intake Total 1170 / 2700 480 / 3180 480 / 480 Output Total 900 / 1300 Balance 1170 / 2300 -420 / 1880 480 / 480 Weight last 48 hrs Weight 249 lb 1 oz Weight 249 lb 1 oz Physical Exam 2 Narrative: Dressing to the left hip is clean dry and intact, patient is able to tolerate gentle hip range of motion movement stills, plantarflex and dorsiflex ankle sensations intact to light touch distally. Distal pulses are palpable appropriate leg lengths clinically. Normal postoperative swelling compartments are soft and compressible calf soft and nontender Urinary Catheter Management: Antunez: Cath Placed During This Visit: yes Reason for Continuing Indwelling Catheter: Acute Urinary Retention or Obstruction Urinary Catheter Date of Insertion: 09/11/23 Urinary Catheter Time of Insertion: 21:55 Data 09/13/23 05:06 09/13/23 05:06 Micro: Microbiology 09/10/23 02:19 Urine Culture - Final Urine,Clean Catch A&P Assessment and plan (1) Closed fracture of left hip: Qualifiers: Encounter type: initial encounter Qualified Code(s): S72.002A - Fracture of unspecified part of neck of left femur, initial encounter for closed fracture Plan Weightbearing as tolerated to the operative extremity Pain control DVT prophylaxis Change dressing as needed PT/OT Posterior hip precautions Ice as needed for pain and swelling Labs reviewed X-rays reviewed Patient's had some urinary retention Internal medicine on board as primary At this point in time patient is stable from a feeding point. Orthopedics will invention required at this time. Orthopedic team will sign off at this time and follow peripherally if there is any questions pertaining to patient's care feel free to contact the orthopedic team on-call. Patient will follow-up with us in the office in 2 weeks. He has appropriate discharge instructions as well as pain medication DVT prophylaxis are in patient's chart. Attestations 2 Medical Necessity Statement*: Ongoing care left hip hemiarthroplasty Coding Level of Care Code Acute Code for Chg Fwd Diagnoses Closed fracture of left hip S72.002A Encounter type: initial encounter
[2023-09-12] MEDS: HYDROmorphone 1 mg/mL INJ 1 mL 0.5 MG IVP (13:48)
--- NOTE | 2023-09-12 13:52 | P.PN_ITS ---
Subjective 2 Subjective: Patient had urinary retention for which Antunez catheter was placed again overnight. It has been removed this morning for a voiding trial. Resumed Flomax last evening.Patient states he has changed his mind about going home as he does not think his be able to help out with follow-up appointments and doing outpatient PT. He would likely benefit from continued rehab and would want to consider transitioning to SNF for the same. States that he felt dizzy while working with PT this morning, wonders if this may be related to his opiates Medications: Reviewed: Yes Vitals/I&O/Wt Last Vital Signs Temp 98.1 F 09/12/23 11:18 Pulse 109 H 09/12/23 11:52 Resp 18 09/12/23 13:48 BP 114/67 09/12/23 11:52 Pulse Ox 96 09/12/23 11:18 O2 Del Method Room Air 09/12/23 11:18 O2 Flow Rate 2 09/11/23 02:56 FiO2 21 09/11/23 22:20 09/11/23 09/12/23 09/12/23 22:59 06:59 14:59 Intake Total 1170 / 2700 480 / 3180 480 / 480 Output Total 900 / 1300 Balance 1170 / 2300 -420 / 1880 480 / 480 Weight last 48 hrs Weight 112.973 kg Weight 112.973 kg Physical Exam 2 Narrative: General: No acute distress, AO x3 HEENT: PERRLA, pupils bilaterally equal and reactive, pallors not present Chest: Normal vesicular breath sounds, no added sounds, equal good air entry bilaterally CVS: S1-S2 regular, no murmurs, no tachycardia, no gallops, no rubs Abdomen: Soft, nontender, no organomegaly, bowel sounds present Neuro: No focal deficits, no facial deformity, AO x3, power 5/5 in all limbs Extremities: No edema clubbing or cyanosis. Urinary Catheter Management: Antunez: Cath Placed During This Visit: yes Reason for Continuing Indwelling Catheter: Acute Urinary Retention or Obstruction Urinary Catheter Date of Insertion: 09/11/23 Urinary Catheter Time of Insertion: 21:55 Data 09/12/23 04:51 09/12/23 04:51 Micro: Microbiology 09/10/23 02:19 Urine Culture - Final Urine,Clean Catch A&P Assessment and plan (1) Closed fracture of left hip: Plan for surgical intervention today. N.p.o. for surgery D5 normal saline at 50 cc an hour while awaiting surgical intervention. As needed morphine for pain management. Qualifiers: Encounter type: initial encounter Qualified Code(s): S72.002A - Fracture of unspecified part of neck of left femur, initial encounter for closed fracture (2) Obstructive sleep apnea: He uses CPAP at nighttime. CPAP ordered for hospital use. Denies any current dyspnea chest pain palpitations. (3) Right bundle branch block: Incidentally noted right bundle branch block with PVCs Patient denies any current chest pain dyspnea or palpitations. Likely to be an incidental finding, perhaps related to long standing sleep apnea, no prior EKG to compare. Troponin series unremarkable. (4) Hypertension: Continue home dose of lisinopril 5 mg p.o. every night. As needed hydralazine as needed Qualifiers: Hypertension type: unspecified Qualified Code(s): I10 - Essential (primary) hypertension (5) Hyperlipidemia: Continue atorvastatin 20 mg p.o. daily Qualifiers: Hyperlipidemia type: unspecified Qualified Code(s): E78.5 - Hyperlipidemia, unspecified Plan DVT prophylaxis: Lovenox to be started postsurgery DNR/DNI Plan for today September 11, 2023. Pain is currently well-controlled. He is status post left hip hemiarthroplasty on September 10, 2023.participating with physical therapy. Likely to benefit from continued skilled rehab postdischarge. Would prefer to arrange home health services and home PT.. Discontinue IV fluids. Patient is eating and drinking well currently. Plan for today September 12, 2023. Voiding trial today. Removal of Antunez. Discussed with patient placing Antunez catheter versus intermittent straight cath of which she prefers to do intermittent self straight cath for now. Does not want a Antunez to be replaced just yet. Patient received a dose of Dilaudid this afternoon following which she became hypotensive and complained of dizziness. Blood pressure at 84 mmHg. Received 500 cc fluid bolus. Blood pressure started to improve even prior to the bolus being completed. Now up to 117. Patient appears to be extremely sensitive to opiates. Complained of slight dizziness this morning shortly after having received oxycodone and now after Dilaudid complained of worsened dizziness and briefly hypotensive. Placed back in bed, Trendelenburg position. Complete bolus. EKG and troponin series to rule out other cardiac possibilities for the dizziness. Additionally ordered echocardiogram. Patient has baseline RBBB and VPCs on his preop EKGs, no prior comparison. This was assumed to be related to longstanding sleep apnea, however given symptoms of dizziness now would evaluate further with troponins and EKGs and assess valvular status. Continue Flomax. Discontinue IV Dilaudid. Change oxycodone to Percocet, reduce frequency to every 6 hours as needed. Encouraged use of alternate pain medications including Toradol and IV Tylenol instead of opiates. Will reserve opiates for breakthrough pain. Ongoing disposition planning Attestations 2 Medical Necessity Statement*: Needs further inpatient care for episodic dizziness today, evaluation of dizziness, cardiac evaluation as above, continued therapy, urinary retention Coding Level of Care Code Acute Code for Chg Fwd Diagnoses Closed fracture of left hip S72.002A Encounter type: initial encounter Obstructive sleep apnea G47.33 Right bundle branch block I45.10 Hypertension I10 Hypertension type: unspecified Hyperlipidemia E78.5 Hyperlipidemia type: unspecified
--- NOTE | 2023-09-12 13:56 | USCV_ITS ---
HarshaRey xiao Age: 83 Gender: M : 1940 Exam Date: 09/12/2023 18:20 Ordering Phys: Silvia Drake MD Technologist: Stef Escobedo [place] [facility] [place]: syncope BP: 115 / 68 HR: 93 Rhythm: Sinus Technical Quality: Adequate MEASUREMENTS (Male / Female) Normal Values 2D ECHO LVOT Diameter 2.1 cm LV Ejection Fraction MOD 2C 69.6 % LV Ejection Fraction 2C AL 71.1 % LA Diameter 3.3 cm RA Systolic Volume 4C AL 31.1 ml RA Systolic Volume 4C MOD 30.6 ml Aorta at Sinotubular Diameter 2.2 cm IVC Diameter 1.7 cm DOPPLER AV Peak Velocity 207.0 cm/s LVOT Peak Velocity 106.0 cm/s AV Area Cont Eq vti 1.7 cm squared AV Area Cont Eq pk 1.7 cm squared MV Peak Velocity 143.0 cm/s MV Area PHT 7.6 cm squared Mitral E to A Ratio 0.6 TV Peak Velocity 167.0 cm/s TR Peak Velocity 216.0 cm/s TR Peak Gradient 18.7 mmHg TR Mean Velocity 143.0 cm/s TR Mean Gradient 9.6 mmHg TR Velocity Time Integral 37.0 cm PV Peak Velocity 118.0 cm/s RV Ejection Time 0.2 s FINDINGS Left Ventricle Left ventricle is normal in size. LV systolic function is normal with EF of 55 to 60%. No regional wall motion abnormalities are seen. Grade 1 diastolic dysfunction Right Ventricle Normal in size and function Right Atrium Normal in size Left Atrium Normal in size Mitral Valve Structurally normal mitral valve. Mild mitral regurgitation. Aortic Valve Structurally normal aortic valve. Mild aortic stenosis with aortic valve area of 1.7 cm squared and mean gradient of 9 mmHg. Mild aortic regurgitation. Tricuspid Valve Insufficient TR jet to calculate RVSP. Pulmonic Valve Not well visualized Pericardium Normal Aorta Normal in size IVC Appears to be normal CONCLUSIONS LV systolic function is normal with EF of 55-60% Grade 1 diastolic dysfunction Mild mitral regurgitation Mild aortic stenosis Mild aortic regurgitation Compared to prior echocardiogram from 2019, patient now has mild aortic stenosis and mild mitral regurgitation Hugh Fleming MD (Electronically Signed) Final Date: 13 September 2023 10:42 S
[2023-09-12 14:13] LABS: Glucose Point of Care 115 mg/dL (70-110)
--- NOTE | 2023-09-12 14:55 | ECG_ITS ---
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 Measurements Intervals [place] Rate: 97 P: 118 MD: 243 QRS: 0 QRSD: 149 T: 15 QT: 360 QTc: 458 Interpretive Statements SINUS RHYTHM WITH FIRST DEGREE AV BLOCK WITH OCCASIONAL SUPRAVENTRICULAR PREMATURE COMPLEXES RIGHT BUNDLE BRANCH BLOCK [120+ ms QRS DURATION, UPRIGHT V1, 40+ ms S IN I/aVL/V4/V5/V6] Compared to ECG 09/09/2023 23:34:58 First degree AV block now present Left-axis deviation no longer present Myocardial infarct finding no longer present Electronically Signed On 09-12-2023 17:09:46 CDT by Clari Cardona M.D. [id number]
[2023-09-12] MEDS: sodium chloride 0.9% 500 ML IV (15:19)
[2023-09-12 15:21] LABS: Troponin(5th) Baseline 15 ng/L (0-15)
--- NOTE | 2023-09-12 16:11 | ECG_ITS ---
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 Measurements Intervals [place] Rate: 100 P: 83 VT: 223 QRS: 5 QRSD: 148 T: 34 QT: 351 QTc: 455 Interpretive Statements SINUS TACHYCARDIA WITH FIRST DEGREE AV BLOCK WITH OCCASIONAL VENTRICULAR PREMATURE COMPLEXES RIGHT BUNDLE BRANCH BLOCK [120+ ms QRS DURATION, UPRIGHT V1, 40+ ms S IN I/aVL/V4/V5/V6] Compared to ECG 09/12/2023 14:55:08 Ventricular premature complex(es) now present Sinus rhythm no longer present Electronically Signed On 09-12-2023 17:41:45 CDT by Clari Cardona M.D. [id number]
[2023-09-12] MEDS: oxyCODONE-APAP 5-325 mg Tablet 1 TAB PO (18:10)
[2023-09-12] MEDS: tamsulosin 0.4 mg Capsule 0.800000000000000044 MG PO (18:10)
[2023-09-12] MEDS: atorvastatin 40 mg Tablet 20 MG PO (18:10)
[2023-09-12 18:23] LABS: Troponin 5 2HR 15.54 ng/L (0-15); Troponin 5 2HR Delta 0.54 ABS# (0-10)
--- NOTE | 2023-09-12 20:07 | ECG_ITS ---
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 Measurements Intervals [place] Rate: 102 P: 92 ID: [id number] QRS: -16 QRSD: 147 T: 31 QT: 357 QTc: 467 Interpretive Statements SINUS TACHYCARDIA WITH FIRST DEGREE AV BLOCK WITH OCCASIONAL VENTRICULAR PREMATURE COMPLEXES RIGHT BUNDLE BRANCH BLOCK [120+ ms QRS DURATION, UPRIGHT V1, 40+ ms S IN I/aVL/V4/V5/V6] Compared to ECG 09/12/2023 16:29:02 Ventricular premature complex(es) now present Electronically Signed On 09-14-2023 11:22:06 CDT by Hugh Fleming M.D. [id number]
[2023-09-12 20:32] LABS: Troponin 5 6HR 17.88 ng/L (0-15); Troponin 5 6HR Delta 2.88 ng/L (0-12)
[2023-09-12] MEDS: acetaminophen 1,000 MG/100 ML PIGGYBACK 400 MG IV (21:15)
[2023-09-13] VITALS (11 sets, daily range): BP systolic 126–160; BP diastolic 69–78; PULSE 86–98; RESP 16–18; TEMP 36.4–37.1; O2SAT 92–95
[2023-09-13] MEDS: oxyCODONE-APAP 5-325 mg Tablet 1 TAB PO ×2 (01:58→09:15)
[2023-09-13 05:23] LABS: Basophils # 0.1 10^3/uL (0.0-0.1); Basophils % 0.8 %; Eosinophils # 0.3 10^3/uL (0.0-0.8); Eosinophils % 3.8 %; Hematocrit 35.8 % (37-53); Lymphocytes # 1.1 10^3/uL (0.8-4.8); Lymphocytes % 13.5 %; Mean Corpuscular HGB Conc 33.2 g/dL (30-55); Mean Corpuscular Hemoglobin 29.7 pg (27-33); Mean Corpuscular Volume 89.3 fl (82-101); Mean Platelet Volume 10.2 fL (7.4-10.4); Monocytes # 0.8 10^3/uL (0.2-0.9); Monocytes % 9.5 %; Neutrophils # 6.04 10^3/uL (1.8-7.7); Neutrophils % 72.2 %; Nucleated Red Blood Cells % 0 %; Platelet Count 174 10^3/cmm (157-399); Red Blood Count 4.01 10^6/uL (3.85-5.65); Red Cell Distribution Width 13.1 % (12.1-15.1); White Blood Count 8.38 10^3/uL (3.29-11.43)
[2023-09-13 05:41] LABS: Alanine Aminotransferase 13 U/L (0-41); Albumin Level 3.3 g/dL (3.5-5.2); Alkaline Phosphatase 64 U/L (40-130); Anion Gap 12.6 (5-19); Aspartate Amino Transferase 18 U/L (0-40); Blood Urea Nitrogen 12 mg/dL (8-23); Calcium 8.6 mg/dL (8.5-10.5); Carbon Dioxide 27 mmol/L (22-29); Chloride 104 mmol/L (98-107); Creatinine Clr Calc Pharmacy 85.2351; Globulin 2.5 g/dL (1.3-4.6); Glucose 132 mg/dL (65-115); Magnesium 1.8 mg/dL (1.7-2.3); Osmolality Calculated 292 mOsm/kg (285-295); Potassium 3.6 mmol/L (3.5-5.1); Sodium 140 mmol/L (136-145); Total Bilirubin 0.7 mg/dL (0.15-1.2); Total Protein 5.8 g/dL (6.6-8.7)
[2023-09-13] MEDS: acetaminophen 1,000 MG/100 ML PIGGYBACK 400 MG IV (05:42)
[2023-09-13] MEDS: sennosides-docusate Tablet 2 TAB PO ×2 (09:15→16:59)
[2023-09-13] MEDS: calcium carb-vit d 600mg/400unit 1 Tablet 1 EACH PO ×2 (09:15→16:59)
[2023-09-13] MEDS: iron polysaccharide complex 150 mg Capsule PO ×2 (09:15→16:59)
[2023-09-13] MEDS: pantoprazole DR 40 mg Tablet PO (09:15)
[2023-09-13] MEDS: enoxaparin 30 mg/0.3 mL Syringe SUBCUT (09:16)
[2023-09-13] MEDS: chlorhexidine gluconate 0.12% Btl 473 mL 30 ML MUCOUS MEM ×3 (09:17→21:22)
[2023-09-13] MEDS: multivitamin therapeutic Tablet 1 TAB PO (09:17)
[2023-09-13] MEDS: mupirocin oint 22 gm 1 APPLIC NASAL (09:18)
[2023-09-13] MEDS: ketorolac 30 mg/mL INJ 15 MG IVP (14:22)
--- NOTE | 2023-09-13 15:10 | P.PN_ITS ---
Subjective 2 Subjective: Thus far remain negative to date urinary retention is now resolved. Patient is able to void freely. Hemodynamics have been stable. EKG and troponin series from yesterday overall unremarkable. Denies any new complaints today. Medications: Reviewed: Yes Vitals/I&O/Wt Last Vital Signs Temp 97.5 F L 09/13/23 07:59 Pulse 93 09/13/23 11:39 Resp 18 09/13/23 11:39 BP 127/75 09/13/23 11:39 Pulse Ox 92 09/13/23 11:39 O2 Del Method Room Air 09/13/23 11:39 O2 Flow Rate 2 09/11/23 02:56 FiO2 21 09/12/23 22:11 09/13/23 09/13/23 09/13/23 06:59 14:59 22:59 Intake Total 1250 / 2330 480 / 480 Output Total 1050 / 1425 100 / 100 Balance 200 / 905 380 / 380 Weight last 48 hrs Weight 113.126 kg Weight 112.973 kg Physical Exam 2 Narrative: General: No acute distress, AO x3 HEENT: PERRLA, pupils bilaterally equal and reactive, pallors not present Chest: Normal vesicular breath sounds, no added sounds, equal good air entry bilaterally CVS: S1-S2 regular, no murmurs, no tachycardia, no gallops, no rubs Abdomen: Soft, nontender, no organomegaly, bowel sounds present Neuro: No focal deficits, no facial deformity, AO x3, power 5/5 in all limbs Extremities: No edema clubbing or cyanosis. Urinary Catheter Management: Antunez: Cath Placed During This Visit: yes Reason for Continuing Indwelling Catheter: Acute Urinary Retention or Obstruction Urinary Catheter Date of Insertion: 09/11/23 Urinary Catheter Time of Insertion: 21:55 Data 09/13/23 05:06 09/13/23 05:06 A&P Assessment and plan (1) Closed fracture of left hip: Plan for surgical intervention today. N.p.o. for surgery D5 normal saline at 50 cc an hour while awaiting surgical intervention. As needed morphine for pain management. Qualifiers: Encounter type: initial encounter Qualified Code(s): S72.002A - Fracture of unspecified part of neck of left femur, initial encounter for closed fracture (2) Obstructive sleep apnea: He uses CPAP at nighttime. CPAP ordered for hospital use. Denies any current dyspnea chest pain palpitations. (3) Right bundle branch block: Incidentally noted right bundle branch block with PVCs Patient denies any current chest pain dyspnea or palpitations. Likely to be an incidental finding, perhaps related to long standing sleep apnea, no prior EKG to compare. Troponin series unremarkable. (4) Hypertension: Continue home dose of lisinopril 5 mg p.o. every night. As needed hydralazine as needed Qualifiers: Hypertension type: unspecified Qualified Code(s): I10 - Essential (primary) hypertension (5) Hyperlipidemia: Continue atorvastatin 20 mg p.o. daily Qualifiers: Hyperlipidemia type: unspecified Qualified Code(s): E78.5 - Hyperlipidemia, unspecified Plan DVT prophylaxis: Lovenox to be started postsurgery DNR/DNI Plan for today September 11, 2023. Pain is currently well-controlled. He is status post left hip hemiarthroplasty on September 10, 2023.participating with physical therapy. Likely to benefit from continued skilled rehab postdischarge. Would prefer to arrange home health services and home PT.. Discontinue IV fluids. Patient is eating and drinking well currently. Plan for today September 12, 2023. Voiding trial today. Removal of Antunez. Discussed with patient placing Antunez catheter versus intermittent straight cath of which she prefers to do intermittent self straight cath for now. Does not want a Antunez to be replaced just yet. Patient received a dose of Dilaudid this afternoon following which she became hypotensive and complained of dizziness. Blood pressure at 84 mmHg. Received 500 cc fluid bolus. Blood pressure started to improve even prior to the bolus being completed. Now up to 117. Patient appears to be extremely sensitive to opiates. Complained of slight dizziness this morning shortly after having received oxycodone and now after Dilaudid complained of worsened dizziness and briefly hypotensive. Placed back in bed, Trendelenburg position. Complete bolus. EKG and troponin series to rule out other cardiac possibilities for the dizziness. Additionally ordered echocardiogram. Patient has baseline RBBB and VPCs on his preop EKGs, no prior comparison. This was assumed to be related to longstanding sleep apnea, however given symptoms of dizziness now would evaluate further with troponins and EKGs and assess valvular status. Continue Flomax. Discontinue IV Dilaudid. Change oxycodone to Percocet, reduce frequency to every 6 hours as needed. Encouraged use of alternate pain medications including Toradol and IV Tylenol instead of opiates. Will reserve opiates for breakthrough pain. Ongoing disposition planning Plan for today September 13, 2023. Patient voiding freely. No new complaints today. Worked with physical therapy today. He was able to ambulate in the hallway without any distress. EKG and troponins overall unremarkable. Echocardiogram shows normal LVEF of 55 to 60%, grade 1 diastolic dysfunction, mild aortic stenosis, mild MR. New compared to prior study. Awaiting appropriate disposition planning. Attestations 2 Medical Necessity Statement*: Clinically improving today, ongoing disposition planning for which patient is currently still in the hospital. Coding Level of Care Code Acute Code for Chg Fwd Straight Forward/Low MDM includes number and complexity of problems actively addressed during encounter, amount and/or complexity of data reviewed/ordered and described risk of complication, morbidity or mortality of management as documented Diagnoses Closed fracture of left hip S72.002A Encounter type: initial encounter Obstructive sleep apnea G47.33 Right bundle branch block I45.10 Hypertension I10 Hypertension type: unspecified Hyperlipidemia E78.5 Hyperlipidemia type: unspecified
[2023-09-13] MEDS: tamsulosin 0.4 mg Capsule 0.800000000000000044 MG PO (16:59)
[2023-09-13] MEDS: atorvastatin 40 mg Tablet 20 MG PO (16:59)
[2023-09-13] MEDS: acetaminophen 325 mg Tablet 650 MG PO (21:21)
[2023-09-14] VITALS (12 sets, daily range): BP systolic 126–165; BP diastolic 71–83; PULSE 78–95; RESP 16–18; TEMP 36.4–36.9; O2SAT 93–96
[2023-09-14] MEDS: oxyCODONE-APAP 5-325 mg Tablet 1 TAB PO ×4 (00:25→19:50)
[2023-09-14] MEDS: ketorolac 30 mg/mL INJ 15 MG IVP (03:25)
[2023-09-14] MEDS: mupirocin oint 22 gm 1 APPLIC NASAL (08:44)
[2023-09-14] MEDS: enoxaparin 30 mg/0.3 mL Syringe SUBCUT (08:45)
[2023-09-14] MEDS: iron polysaccharide complex 150 mg Capsule PO ×2 (08:45→18:02)
[2023-09-14] MEDS: calcium carb-vit d 600mg/400unit 1 Tablet 1 EACH PO ×2 (08:45→18:01)
[2023-09-14] MEDS: pantoprazole DR 40 mg Tablet PO (08:45)
[2023-09-14] MEDS: multivitamin therapeutic Tablet 1 TAB PO (08:45)
[2023-09-14] MEDS: sennosides-docusate Tablet 2 TAB PO ×2 (08:45→18:02)
[2023-09-14] MEDS: chlorhexidine gluconate 0.12% Btl 473 mL 30 ML MUCOUS MEM ×4 (08:45→20:54)
--- NOTE | 2023-09-14 14:18 | P.PN_ITS ---
Subjective 2 Subjective: No acute interim events. Blood pressure uncontrolled, however this is likely related to holding lisinopril over the last 24 hours. Medication has been resumed today. States that he feels like he pulled a muscle over the left abdomen while attempting to get out of recliner today. No tenderness over the area. Will obtain x-ray to ensure joint distal length. Medications: Reviewed: Yes Vitals/I&O/Wt Last Vital Signs Temp 97.7 F 09/14/23 11:37 Pulse 89 09/14/23 11:37 Resp 18 09/14/23 13:38 BP 165/83 09/14/23 11:37 Pulse Ox 93 09/14/23 11:37 O2 Del Method Room Air 09/14/23 11:37 O2 Flow Rate 2 09/11/23 02:56 FiO2 21 09/12/23 22:11 09/13/23 09/14/23 09/14/23 22:59 06:59 14:59 Intake Total 540 / 1020 840 / 840 Output Total 400 / 500 200 / 700 300 / 300 Balance 140 / 520 -200 / 320 540 / 540 Weight last 48 hrs Weight 112.037 kg Weight 113.126 kg Physical Exam 2 Narrative: General: No acute distress, AO x3 HEENT: PERRLA, pupils bilaterally equal and reactive, pallors not present Chest: Normal vesicular breath sounds, no added sounds, equal good air entry bilaterally CVS: S1-S2 regular, no murmurs, no tachycardia, no gallops, no rubs Abdomen: Soft, nontender, no organomegaly, bowel sounds present Neuro: No focal deficits, no facial deformity, AO x3, power 5/5 in all limbs Extremities: No edema clubbing or cyanosis. Urinary Catheter Management: Antunez: Cath Placed During This Visit: yes Reason for Continuing Indwelling Catheter: Acute Urinary Retention or Obstruction Urinary Catheter Date of Insertion: 09/11/23 Urinary Catheter Time of Insertion: 21:55 Data 09/13/23 05:06 09/13/23 05:06 A&P Assessment and plan (1) Closed fracture of left hip: Plan for surgical intervention today. N.p.o. for surgery D5 normal saline at 50 cc an hour while awaiting surgical intervention. As needed morphine for pain management. Qualifiers: Encounter type: initial encounter Qualified Code(s): S72.002A - Fracture of unspecified part of neck of left femur, initial encounter for closed fracture (2) Obstructive sleep apnea: He uses CPAP at nighttime. CPAP ordered for hospital use. Denies any current dyspnea chest pain palpitations. (3) Right bundle branch block: Incidentally noted right bundle branch block with PVCs Patient denies any current chest pain dyspnea or palpitations. Likely to be an incidental finding, perhaps related to long standing sleep apnea, no prior EKG to compare. Troponin series unremarkable. (4) Hypertension: Continue home dose of lisinopril 5 mg p.o. every night. As needed hydralazine as needed Qualifiers: Hypertension type: unspecified Qualified Code(s): I10 - Essential (primary) hypertension (5) Hyperlipidemia: Continue atorvastatin 20 mg p.o. daily Qualifiers: Hyperlipidemia type: unspecified Qualified Code(s): E78.5 - Hyperlipidemia, unspecified Plan DVT prophylaxis: Lovenox to be started postsurgery DNR/DNI Plan for today September 11, 2023. Pain is currently well-controlled. He is status post left hip hemiarthroplasty on September 10, 2023.participating with physical therapy. Likely to benefit from continued skilled rehab postdischarge. Would prefer to arrange home health services and home PT.. Discontinue IV fluids. Patient is eating and drinking well currently. Plan for today September 12, 2023. Voiding trial today. Removal of Antunez. Discussed with patient placing Antunez catheter versus intermittent straight cath of which she prefers to do intermittent self straight cath for now. Does not want a Antunez to be replaced just yet. Patient received a dose of Dilaudid this afternoon following which she became hypotensive and complained of dizziness. Blood pressure at 84 mmHg. Received 500 cc fluid bolus. Blood pressure started to improve even prior to the bolus being completed. Now up to 117. Patient appears to be extremely sensitive to opiates. Complained of slight dizziness this morning shortly after having received oxycodone and now after Dilaudid complained of worsened dizziness and briefly hypotensive. Placed back in bed, Trendelenburg position. Complete bolus. EKG and troponin series to rule out other cardiac possibilities for the dizziness. Additionally ordered echocardiogram. Patient has baseline RBBB and VPCs on his preop EKGs, no prior comparison. This was assumed to be related to longstanding sleep apnea, however given symptoms of dizziness now would evaluate further with troponins and EKGs and assess valvular status. Continue Flomax. Discontinue IV Dilaudid. Change oxycodone to Percocet, reduce frequency to every 6 hours as needed. Encouraged use of alternate pain medications including Toradol and IV Tylenol instead of opiates. Will reserve opiates for breakthrough pain. Ongoing disposition planning Plan for today September 13, 2023. Patient voiding freely. No new complaints today. Worked with physical therapy today. He was able to ambulate in the hallway without any distress. EKG and troponins overall unremarkable. Echocardiogram shows normal LVEF of 55 to 60%, grade 1 diastolic dysfunction, mild aortic stenosis, mild MR. New compared to prior study. Awaiting appropriate disposition planning. Plan for today September 14, 2023. Continues to void freely. No urinary complaints. States that he feels he pulled a muscle on the left abdomen while attempting to get out of her recliner. Area examined, no tenderness encountered. No overlying skin changes. States he feels he had some trouble getting out of bed thereafter however did continue to work with physical therapy.will obtain X-ray to ensure alignment of newly placed joint. No new concerns. Awaiting disposition planning Attestations 2 Medical Necessity Statement*: awaiting disposition planning Coding Level of Care Code Acute Code for Chg Fwd Straight Forward/Low MDM includes number and complexity of problems actively addressed during encounter, amount and/or complexity of data reviewed/ordered and described risk of complication, morbidity or mortality of management as documented Diagnoses Closed fracture of left hip S72.002A Encounter type: initial encounter Obstructive sleep apnea G47.33 Right bundle branch block I45.10 Hypertension I10 Hypertension type: unspecified Hyperlipidemia E78.5 Hyperlipidemia type: unspecified
--- NOTE | 2023-09-14 17:34 | XRR_ITS ---
PROCEDURE INFORMATION: Exam: XR Left Hip Exam date and time: 09/14/2023 4:54 PM Age: 83 years old Clinical indication: Hip pain; Left hip; Prior surgery; Surgery date: 3-7 days post-operative; Surgery type: Pain when walking; Additional info: Recent arthroplasty, recent arthroplasty, C/O catch while walking this am TECHNIQUE: Imaging protocol: Radiologic exam of the left hip. Views: 2 or 3 views hip with pelvis when performed. COMPARISON: CR (PELVIS, ) 09/10/2023 7:37 PM FINDINGS: Bones/joints: No dislocation. No fracture. There is apparent change in the orientation of the acetabular cup with anterior or posterior rotation of the acetabular cup compared to the radiographs on 09/10/2023 which may be due in part to differences in projection. Soft tissues: There is skin te overlying the soft tissues lateral to the hip. There is subcutaneous edema and trace gas, decreased since 09/10/2023. XR/XR hip LT 2-3V wo/w pel* [id number] IMPRESSION: 1. No fracture or dislocation. 2. Probable interval anterior or posterior rotation of the acetabular cup since 09/10/2023. This finding may be due in part to differences in radiographic projection.
[2023-09-14] MEDS: lisinopril 5 mg Tablet PO (18:01)
[2023-09-14] MEDS: atorvastatin 40 mg Tablet 20 MG PO (18:02)
[2023-09-14] MEDS: tamsulosin 0.4 mg Capsule 0.800000000000000044 MG PO (18:02)
[2023-09-15] VITALS (7 sets, daily range): BP systolic 132–166; BP diastolic 74–95; PULSE 73–95; RESP 15–18; TEMP 36.6–37; O2SAT 93–96
[2023-09-15 02:21] LABS: Basophils # 0.1 10^3/uL (0.0-0.1); Basophils % 0.8 %; Eosinophils # 0.4 10^3/uL (0.0-0.8); Eosinophils % 4.7 %; Hematocrit 37.5 % (37-53); Lymphocytes # 1.6 10^3/uL (0.8-4.8); Lymphocytes % 21.1 %; Mean Corpuscular HGB Conc 33.3 g/dL (30-55); Mean Corpuscular Hemoglobin 29.6 pg (27-33); Mean Corpuscular Volume 88.9 fl (82-101); Mean Platelet Volume 10.4 fL (7.4-10.4); Monocytes % 12.8 %; Neutrophils # 4.64 10^3/uL (1.8-7.7); Neutrophils % 60.2 %; Nucleated Red Blood Cells % 0 %; Platelet Count 252 10^3/cmm (157-399); Red Blood Count 4.22 10^6/uL (3.85-5.65); White Blood Count 7.71 10^3/uL (3.29-11.43)
[2023-09-15 02:29] LABS: Alanine Aminotransferase 17 U/L (0-41); Albumin Level 3.1 g/dL (3.5-5.2); Alkaline Phosphatase 65 U/L (40-130); Anion Gap 12.7 (5-19); Aspartate Amino Transferase 19 U/L (0-40); Blood Urea Nitrogen 15 mg/dL (8-23); Calcium 8.5 mg/dL (8.5-10.5); Carbon Dioxide 25 mmol/L (22-29); Chloride 103 mmol/L (98-107); Creatinine Clr Calc Pharmacy 84.8116; Globulin 2.9 g/dL (1.3-4.6); Glucose 122 mg/dL (65-115); Osmolality Calculated 286 mOsm/kg (285-295); Potassium 3.7 mmol/L (3.5-5.1); Sodium 137 mmol/L (136-145); Total Bilirubin 0.6 mg/dL (0.15-1.2)
[2023-09-15] MEDS: oxyCODONE-APAP 5-325 mg Tablet 1 TAB PO ×2 (02:29→08:30)
[2023-09-15] MEDS: calcium carb-vit d 600mg/400unit 1 Tablet 1 EACH PO (08:29)
[2023-09-15] MEDS: iron polysaccharide complex 150 mg Capsule PO (08:29)
[2023-09-15] MEDS: multivitamin therapeutic Tablet 1 TAB PO (08:29)
[2023-09-15] MEDS: sennosides-docusate Tablet 2 TAB PO (08:29)
[2023-09-15] MEDS: pantoprazole DR 40 mg Tablet PO (08:29)
[2023-09-15] MEDS: mupirocin oint 22 gm 1 APPLIC NASAL (08:30)
[2023-09-15] MEDS: chlorhexidine gluconate 0.12% Btl 473 mL 30 ML MUCOUS MEM (08:30)
[2023-09-15] MEDS: enoxaparin 30 mg/0.3 mL Syringe SUBCUT (08:31)
--- NOTE | 2023-09-15 09:30 | P.DS_ITS ---
Discharge Providers Date of Admission: 09/09/23 23:58 Date of Discharge: September 15, 2023 Attending Provider at Admission: Marvin Ni MD Attending Provider at Discharge: Aman Rosenthal MD Consults: Dr. Christianson Diagnoses at Discharge Discharge Diagnosis (1) Closed fracture of left hip: Details from hospital stay: DOS: 09/10/[address] Christianson Status: Acute Qualifiers: Encounter type: initial encounter Qualified Code(s): S72.002A - Fracture of unspecified part of neck of left femur, initial encounter for closed fracture (2) Obstructive sleep apnea: Status: Acute (3) Right bundle branch block: Status: Acute (4) Hypertension: Status: Acute Qualifiers: Hypertension type: unspecified Qualified Code(s): I10 - Essential (primary) hypertension (5) Hyperlipidemia: Status: Acute Qualifiers: Hyperlipidemia type: unspecified Qualified Code(s): E78.5 - Hyperlipidemia, unspecified Reason for Visit Reason for Visit: fall, hip pain, skin tear Hospital Course Hospital Course 83yo M with Hx of RBB, ELKE, HTN, HLD presented to [facility] on 09/10/23 s/p fall. was brought to OR by Dr. Christianson for surgery. performed a LEFT heimiarthropasty on 09/09/33. successful surger. Pt reacted poorly to dilaudid dosage on 09/12/23 and became hypotensive with dizziness. 500cc bolus given and tendelenburg positioning. EKG, troponins where negative. ECHO showed EF 55-60% with G1DD. tolerated oxycodone on a PRN basis. worked well with PT. tolerated medication well. accepted to [facility]. changed oxycodone to percocet on discharge. at time of discharge was stable and pain well controlled Physical Exam Narrative: General: No acute distress, AO x3 HEENT: PERRLA, pupils bilaterally equal and reactive, pallors not present Chest: Normal vesicular breath sounds, no added sounds, equal good air entry bilaterally CVS: S1-S2 regular, no murmurs, no tachycardia, no gallops, no rubs Abdomen: Soft, nontender, no organomegaly, bowel sounds present Neuro: No focal deficits, no facial deformity, AO x3, power 5/5 in all limbs Extremities: No edema clubbing or cyanosis. Urinary Catheter Management: Antunez: Cath Placed During This Visit: yes Reason for Continuing Indwelling Catheter: Acute Urinary Retention or Obstruction Urinary Catheter Date of Insertion: 09/11/23 Urinary Catheter Time of Insertion: 21:55 Discharge Data Studies Completed and Pending Completed Studies During Hospitalization Category Date Time Status CT hip LT wo con* [id number] Stat Cat Scan 09/09/23 23:33 Completed XR chest 1V portable [id number] Stat Exams 09/09/23 22:49 Completed XR femur LT min 2V* [id number] Stat Exams 09/09/23 22:55 Completed XR hip LT 2-3V wo/w pel* [id number] Routine Exams 09/10/23 20:21 Completed XR hip LT 2-3V wo/w pel* [id number] Routine Exams 09/14/23 17:34 Completed XR hip LT 2-3V wo/w pel* [id number] Stat Exams 09/09/23 22:04 Completed CV. echo complete* [id number] Routine Ultrasound 09/12/23 13:56 Completed Radiology Impressions Chest X-Ray 09/09/23 22:49 IMPRESSION: No acute findings. Unchanged exam. Femur X-Ray 09/09/23 22:55 IMPRESSION: 1. Subtle cortical step-off subcapital left femoral neck concerning for acute subcapital femur fracture best seen on the AP view. 2. Severe degenerative changes of the knee. No additional acute fracture. Hip CT 09/09/23 23:33 IMPRESSION: There is an impacted left subcapital femur fracture. Hip/Pelvis X-Ray 09/14/23 17:34 IMPRESSION: 1. No fracture or dislocation. 2. Probable interval anterior or posterior rotation of the acetabular cup since 09/10/2023. This finding may be due in part to differences in radiographic projection. Laboratory Results WBC 7.71 10^3/uL (3.29-11.43) 09/15/23 01:43 RBC 4.22 10^6/uL (3.85-5.65) 09/15/23 01:43 Hgb 12.50 g/dL (11.27-16.99) 09/15/23 01:43 Hct 37.5 % (37-53) 09/15/23 01:43 MCV 88.9 fl (82-101) 09/15/23 01:43 MCH 29.6 pg (27-33) 09/15/23 01:43 MCHC 33.3 g/dL (30-55) 09/15/23 01:43 RDW 13.0 % (12.1-15.1) 09/15/23 01:43 Plt Count 252 10^3/cmm (157-399) 09/15/23 01:43 MPV 10.4 fL (7.4-10.4) 09/15/23 01:43 Neut % (Auto) 60.2 % 09/15/23 01:43 Lymph % (Auto) 21.1 % 09/15/23 01:43 Hemphill % (Auto) 12.8 % 09/15/23 01:43 Eos % (Auto) 4.7 % 09/15/23 01:43 Baso % (Auto) 0.8 % 09/15/23 01:43 Neut # (Auto) 4.64 10^3/uL (1.8-7.7) 09/15/23 01:43 Lymph # (Auto) 1.6 10^3/uL (0.8-4.8) 09/15/23 01:43 Hemphill # (Auto) 1.0 10^3/uL (0.2-0.9) H 09/15/23 01:43 Eos # (Auto) 0.4 10^3/uL (0.0-0.8) 09/15/23 01:43 Baso # (Auto) 0.1 10^3/uL (0.0-0.1) 09/15/23 01:43 Nucleated RBC % (auto) 0 % 09/15/23 01:43 Nucleated RBCs # 0.0 /100WBC 09/15/23 01:43 PT 12.90 SECONDS (12.1-14.9) 09/09/23 22:52 INR 0.95 (0.8-1.2) 09/09/23 22:52 Sodium 137 mmol/L (136-145) 09/15/23 01:43 Potassium 3.7 mmol/L (3.5-5.1) 09/15/23 01:43 Chloride 103 mmol/L (98-107) 09/15/23 01:43 Carbon Dioxide 25 mmol/L (22-29) 09/15/23 01:43 Anion Gap 12.7 (5-19) 09/15/23 01:43 BUN 15 mg/dL (8-23) 09/15/23 01:43 Creatinine 0.5 mg/dL (0.7-1.2) L 09/15/23 01:43 GFR Calculation Not Reportable 09/15/23 01:43 Glucose 122 mg/dL (65-115) H 09/15/23 01:43 POC Glucose 115 mg/dL (70-110) H 09/12/23 14:04 Calculated Osmolality 286 mOsm/kg (285-295) 09/15/23 01:43 Calcium 8.5 mg/dL (8.5-10.5) 09/15/23 01:43 Phosphorus 3.0 mg/dL (2.5-4.5) 09/13/23 05:06 Magnesium 1.8 mg/dL (1.7-2.3) 09/13/23 05:06 Total Bilirubin 0.6 mg/dL (0.15-1.2) 09/15/23 01:43 AST 19 U/L (0-40) 09/15/23 01:43 ALT 17 U/L (0-41) 09/15/23 01:43 Alkaline Phosphatase 65 U/L (40-130) 09/15/23 01:43 Troponin T Baseline 15 ng/L (0-15) 09/12/23 14:43 Troponin T 120 Minute 15.54 ng/L (0-15) H 09/12/23 17:57 Delta Troponin T 0.54 ABS# (0-10) 09/12/23 17:57 Troponin T Hi Sens 6Hr 17.88 ng/L (0-15) H 09/12/23 20:03 Troponin T Hi Sens 6Hr Delta 2.88 ng/L (0-12) 09/12/23 20:03 NT-Pro-B Natriuret Pep 107 pg/mL (0-450) 09/10/23 04:40 Total Protein 6.0 g/dL (6.6-8.7) L 09/15/23 01:43 Albumin 3.1 g/dL (3.5-5.2) L 09/15/23 01:43 Globulin 2.9 g/dL (1.3-4.6) 09/15/23 01:43 TSH 2.67 uIU/mL (0.27-4.20) 09/10/23 00:40 Urine Color Yellow (Yellow) 09/10/23 02:19 Urine Appearance Cloudy (CLEAR) A 09/10/23 02:19 Urine pH 7 (5-7) 09/10/23 02:19 Ur Specific Trion 1.010 (1.005-1.030) 09/10/23 02:19 Urine Protein Neg (Negative) 09/10/23 02:19 Urine Glucose (UA) Norm (Normal) 09/10/23 02:19 Urine Ketones Negative (Negative) 09/10/23 02:19 Urine Blood 3+ (Negative) H 09/10/23 02:19 Urine Nitrate Positive (Negative) H 09/10/23 02:19 Urine Bilirubin Neg (Negative) 09/10/23 02:19 Urine Urobilinogen Neg mg/dL (Negative) 09/10/23 02:19 Ur Leukocyte Esterase 2+ (Negative) H 09/10/23 02:19 Urine RBC 15-25 /hpf (0-2) H 09/10/23 02:19 Urine WBC 55-80 /hpf (0-5) H 09/10/23 02:19 Ur Squamous Epith Cells 0-4 /hpf (0-5) H 09/10/23 02:19 Amorphous Sediment Not Reportable 09/10/23 02:19 Urine Bacteria 3+ /hpf (NONE) H 09/10/23 02:19 Urine Mucus 3+ /hpf 09/10/23 02:19 Blood Type B Positive 09/09/23 23:27 Rho(D) Type Rh positive 09/09/23 23:27 Antibody Screen Negative 09/09/23 23:27 Vitals Last Vital Signs Temp 98.4 F 09/15/23 07:37 Pulse 90 09/15/23 07:37 Resp 15 09/15/23 08:30 BP 144/79 09/15/23 07:37 Pulse Ox 93 09/15/23 07:37 O2 Del Method Room Air 09/15/23 07:37 O2 Flow Rate 2 09/11/23 02:56 FiO2 21 09/12/23 22:11 Discharge Plan Discharge Patient Disposition: Home Condition: Stable Prescriptions: New oxycodone 5 mg tablet 5 mg PO Q6H PRN (Reason: pain postop) 7 Days Qty: 28 0RF calcium carbonate-vitamin D3 [Calcium 600 + D(3)] 600 mg-10 mcg (400 unit) tablet 1 tab PO DAILY 30 Days Qty: 30 0RF ondansetron 4 mg tablet,disintegrating 4 mg PO Q8H 3 Days Qty: 9 0RF polysaccharide iron complex [Ferrex 150] 150 mg iron Capsule 150 mg PO BIDWM Qty: 60 0RF enoxaparin [Lovenox] 30 mg/0.3 mL syringe 30 mg SUBCUT DAILY 35 Days Qty: 10.5 0RF Continued atorvastatin 20 mg Tablet 20 mg PO QPM tamsulosin 0.4 mg Capsule 0.8 mg PO QPM lisinopril 10 mg Tablet 5 mg PO QPM Vitamin D3 50 mcg (2,000 unit) Capsule 50 mcg PO QPM Discharge Orders: Discharge Order (Routine); Ordered 09/15/23 Ordered By: Aman Rosenthal Other Ambulatory Orders: Physical Therapy Eval and Treat Outpatient (Order) Timeframe: 3 Days Facility: [facility] - Location: Physical Therapy [place] Ordered By: Rishabh Christianson Referrals: Rishabh Christianson DO [Physician] - [facility] [Occupational Therapist] - 09/23/23 8:30 am ([phone]) Discharge Diet: Advance as tolerated Discharge Activity: Limit activity as instructed Patient Instructions: Opioid Safety Activity Restrictions/Additional Instructions: Orthopedic postop hip Hemiarthroplasty discharge instructions: Weightbearing as tolerated operative extremity Leave dressing on in place for 7 days after that can remove bandage dressing and rinse incision with warm soapy water clean and pat dry and then redress with a simple dry dressing No baths or soaks Take pain medication as prescribed Take antinausea medication as needed Supplement with calcium and vitamin D supplementation for bone health and h ealing Take blood thinner (Lovenox) as prescribed for blood clot prevention Posterior hip precautions: Avoid hip flexion greater than 90 and avoid internal rotation or crossing legs)?as instructed by physical therapy Utilize walker as needed for safety Follow-up in the orthopedic office in 2 weeks Contact the office for any questions or concerns Discharge Attestations Time Spent in Discharge Care*: less than 30 min Quality Metrics Clinical Quality Measures [ No reported AMI, CVA or VTE this stay] Coding Level of Care Code 63191 Diagnoses Closed fracture of left hip S72.002A Encounter type: initial encounter Obstructive sleep apnea G47.33 Right bundle branch block I45.10 Hypertension I10 Hypertension type: unspecified Hyperlipidemia E78.5 Hyperlipidemia type: unspecified
--- NOTE | 2023-09-15 10:05 | PC.NURSE ---
This nurse charted out gandara. Was removed by other nurse previously and not charted correctly
[2023-09-15] MEDS: acetaminophen 325 mg Tablet 650 MG PO (10:36)
[2023-09-15 11:01] LABS: SARS Covid-2 Antigen negative (Negative)
--- NOTE | 2023-09-15 12:03 | PC.NURSE ---
This nurse gave report to Alta at [facility]. All questions addressed at this time. Ready transport should be here between [phone] for patients discharge ride to facility.
--- NOTE | 2023-09-15 12:08 | PC.SOCIAL ---
IMM Updated Updated pt on IMM. No questions voiced. Provided pt a copy. Initialed, dated, & timed copy in chart.
== END 2023-09-15 14:00 | disposition skilled nursing facility (03) | DRG 522 ==
LOC: ER 23:35 → MEDSURG 23:58
PROVIDERS: Student in an Organized Health Care Education/Training Program; Admitting Provider Family Medicine; Emergency Provider Emergency Medicine; Visit Provider Family Medicine
PROC: 0SRS0J9 Replacement of Left Hip Joint, Femoral Surface with Synthetic Substitute, Cemented, Open Approach (ICD-10-PCS; CPT 27125; principal; 2023-09-10 16:35)
DX: S72.012A Unspecified intracapsular fracture of left femur, initial encounter for closed fracture (principal); W10.9XXA Fall (on) (from) unspecified stairs and steps, initial encounter; I10 Essential (primary) hypertension; E78.5 Hyperlipidemia, unspecified; Z66 Do not resuscitate; G47.33 Obstructive sleep apnea (adult) (pediatric); R33.9 Retention of urine, unspecified; I45.10 Unspecified right bundle-branch block; Z11.52 Encounter for screening for COVID-19; Z99.89 Dependence on other enabling machines and devices; Z87.891 Personal history of nicotine dependence
CPT/HCPCS: 36415; 36416; 51702; 51798; 71045; 73502; 73552; 73700; 80053; 81001; 82962; 83735; 83880; 84100; 84443; 84484; 85025; 85610; 86850; 86900; 87086; 87426; 93005; 93306; 94660; 94664; 96372; 96374; 96375; 97110; 97116; 97161; 97166; 97530; 97535; 99285; C1713; C1776; C9113; J0131; J0330; J0360; J1100; J1170; J1650; J1885; J2270; J2371; J2405; J2704; J2710; J3010; J3370; J3490; J7030; J7040; J7042; J7120

== ENCOUNTER → 2023-09-23 12:19 | Outpatient (BNVA) | payer MEDICARE, SELFPAY | PROVIDERS: Visit Provider Student in an Organized Health Care Education/Training Program | DX: Z96.642 Presence of left artificial hip joint | CPT/HCPCS: 73502; 99024 ==

== ENCOUNTER 2023-10-28 08:26 | Emergency (ER) | payer MEDICARE, SELFPAY ==
[2023-10-28] VITALS (35 sets, daily range): BP systolic 107–143; BP diastolic 61–82; PULSE 63–96; RESP 12–26; TEMP 36.4; O2SAT 95–98
--- NOTE | 2023-10-28 09:44 | PC.PHAR ---
PT IS [facility] FOR MED LIST 9:44AM 10/28/23
--- NOTE | 2023-10-28 09:46 | CT_ITS ---
WS: [id number] CT CERVICAL SPINE HISTORY: right arm parathesia TECHNIQUE: Contiguous 2.0 mm axial imaging performed through the entire cervical spine. Sagittal and coronal reformats also performed. All CT scans at [facility] use at least one of these dose o ptimization techniques: automated exposure control; mA and/or kV adjustment per patient size (include s targeted exams where dose is matched to clinical indication); or iterative reconstruction. DLP: 213.47 mGy.cm COMPARISON: None available. Moderate increase in the cervical lordosis. Fusion across the C5-6 disc. Anterior age-indeterminate b ut probably remote compression fracture at T2 by 40%. 2 mm retrolisthesis of C3. Facet joints are als o fused at the C5-6 level. Advanced narrowing of the predental space. C2-C3: Shallow central disc protrusion. No stenosis. C3-C4: Mild osteophytic ridging and bilateral facet arthritis. Moderate bilateral foraminal stenosis, RIGHT greater than LEFT and facet arthritis. C4-C5: Osteophytic ridging with moderate bilateral facet joint arthritis. Bilateral foraminal stenosi s., Moderate to severe LEFT foraminal stenosis and moderate RIGHT foraminal stenosis. C5-C6: Bilateral facet joint arthritis and mild foraminal narrowing. C6-C7: Mild facet arthritis. No stenosis. C7-T1: Mild facet arthritis. Soft tissues are normal. Lung apices are clear. CT/CT cervical spin wo con* [id number] IMPRESSION: 1. Increase in the lumbar lordosis. Osseous fusion across C5-6 and disc base a nd the facet joints. 2. Age-indeterminate but remote appearing 40% compression fracture T2. 3. Moderate to severe LEFT and moderate RIGHT foraminal stenosis at C4-5. 4. Moderate bilateral foraminal stenosis, RIGHT greater than LEFT at C3-4. 5. 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
--- NOTE | 2023-10-28 09:47 | W.ED.EXTPRO ---
HPI - Extremity Problem General: Chief complaint: Extremity Problem,Nontraumatic Stated complaint: numbness in right arm Time Seen by Provider: 10/28/23 09:03 Source: patient Mode of arrival: ambulatory Limitations: no limitations History of Present Illness: This patient presents to the emergency department because of concerns about a subjective sensation of numbness and tingling in his right arm. He states he noted it about 3 days ago. He states it seems to involve most of his arm. He states that he has not had any recent injuries. He did have a hip surgery back in September and he was in rehab at the long-term care facility for 2 to 3 weeks and is now back at his home. He denies any motor deficits on any of his right arm although it seems to have decreased human factors advisor lead strength he thinks. He has been using a walker because of his recent hip surgery and as well as other physical therapy activities. He denies any headache other extremity weakness or numbness difficulty with speech etc. He is right-handed. Associated symptoms: Deny chest pain, fever(s) or rash Review of Systems Const: Denies: fever(s) or chills Eyes: Denies: change in vision ENMT: Denies: throat pain, odynophagia, nasal discharge or nasal congestion Card: Denies: chest pain, irregular heart rhythm, lightheadedness, syncope or pre-syncope Resp: Denies: dyspnea, productive cough or non-productive cough GI: Denies: abdominal pain, nausea or vomiting : Denies: flank pain, difficulty urinating, dysuria or urinary frequency Musc: Denies: neck pain, back pain, extremity pain or extremity swelling Skin/Breast: Denies: rash or pruritus Neuro: Denies: headache(s), weakness in extremities, sensory changes, lack of coordination, difficulty walking, frequent falls or Slurred speech present Psych: Denies: anxiety or depression PFS ED PFSH: Medical History Hyperlipidemia Hypertension Surgical History No pertinent past surgical history Social History Smoking and tobacco/nicotine status: former use of tobacco/nicotine Alcohol intake: former Substance/Drug Use: never Physical Exam Narrative: EXAM NARRATIVE: Patient is alert cooperative in no acute distress and comfortable. Const: COMMON NORMALS: no acute distress, patient oriented x3, healthy appearing and alert GENERAL APPEARANCE: cooperative NUTRITIONAL APPEARANCE: overweight HENMT: COMMON NORMALS: normocephalic, Normal nasal mucous membranes and turbinates present and moist oral mucous membranes HEAD & SCALP: normocephalic NOSE: Normal nasal mucous membranes and turbinates present Eye: COMMON NORMALS: Equal, round and reactive pupils present, EOMs intact bilaterally and conjunctivae normal CONJUNCTIVA: Yes conjunctivae normal PUPIL: Yes Equal, round and reactive pupils present Neck/C-Spine: COMMON NORMALS: full ROM CERVICAL SPINE: Yes cervical ROM normal, Yes normal cervical lordosis, No Cervical spine tenderness, No step off deformity, No Paracervical muscle tenderness, No Paracervical spasm and No Trapezius muscle tenderness Resp: COMMON NORMALS: normal respiratory effort and No retractions EFFORT & INSPECTION: Yes able to speak in complete sentences Cardio: COMMON NORMALS: regular rhythm and Peripheral pulses 2+ throughout RHYTHM: regular rhythm PERIPHERAL PULSES: Peripheral pulses 2+ throughout : COMMON NORMALS: Yes no CVA tenderness BLADDER/KIDNEY EXAM: Yes no CVA tenderness Back/Pelvis: COMMON NORMALS: no CVA tenderness, thoracic and lumbar spine normal to inspection, no thoracic nor lumbar tenderness, thoraco-lumbar ROM normal and straight leg raise negative bilaterally Extremity: COMMON NORMALS: normal to inspection, full ROM, capillary refill normal and no joint enlargement Neuro: COMMON NORMALS: patient oriented x3, moves all extremities, no focal motor deficits and no sensory deficits noted SENSORIUM/ORIENTATION: Yes alert OTHER: He has intact motor and sensory to all dermatomes to examination. He does have some alleviation of his symptoms with Phalen's with reduction in his symptoms. There is no change in his symptoms with elevation of his arm to 180 degrees of abduction Psych: COMMON NORMALS: mental status grossly normal Skin: COMMON NORMALS: no rashes or lesions noted, no wounds and turgor normal GENERAL SKIN EXAM: no rashes or lesions noted and turgor normal Course Reevaluation(s): Reevaluation #1: Patient was reevaluated. He states that actually his symptoms seem to be abated at this point. I reviewed his imaging study results with him. He has degenerative changes and foraminal stenosis but more prominent on the left than the right. No critical foraminal stenosis noted by radiology. Because of his recent history of use of walker and still currently using walker on occasion is translated transitioned into walking sticks and other devices which require significant human factors advisor lead and pressure on his wrist still makes sense that this is a median nerve neuropathy or carpal tunnel syndrome causing his symptoms and extremely unlikely and not consistent with a central etiology however I did inform him in detail that there is certainly a potential for increasing foraminal stenosis resulting in more symptoms which could include weakness etc. and this should be addressed more urgently. In the short-term we have advised him to use splints at night and follow-up with his primary care doctor for reevaluation. He voiced understanding and was appreciative of care. Stable for discharge at this time. Time: 12:10 Vital Signs: Vital signs: Vital Signs Temperature 97.6 F 10/28/23 08:48 Pulse Rate 76 10/28/23 11:10 Respiratory Rate 12 10/28/23 11:10 Blood Pressure 131/62 10/28/23 11:10 Pulse Oximetry 97 10/28/23 11:10 Oxygen Delivery Me thod Room Air 10/28/23 10:55 MDM - Extremity (Nontraumatic) Medical Decision Making Patient with approximately 3 days of right arm dysesthesias. No injury no other associated neurologic deficits. Status post recent hip surgery with walker use and other physical therapy activity. Clinical examination supports likely peripheral etiology with some suggestion of possible median nerve contribution. Go ahead and image his cervical spine to ensure that there is no cervical spine compression not consistent with a central etiology. Imaging revealed degenerative changes and foraminal stenosis as 1 would expect but nothing of critical nature at this time. Given the waxing and waning symptoms he is having with more symptoms in the morning after sleep as evidenced by improving symptoms today and and previously again a more consistent with a peripheral etiology such as a median nerve neuropathy neuropathy and not consistent with a more proximal cause or central cause. We will proceed with symptomatic treatment with outpatient follow-up with return precautions. Lab Data I reviewed the patient's lab results. Radiology Impressions Cervical Spine CT 10/28/23 09:46 IMPRESSION: 1. Increase in the lumbar lordosis. Osseous fusion across C5-6 and disc base and the facet joints. 2. Age-indeterminate but remote appearing 40% compression fracture T2. 3. Moderate to severe LEFT and moderate RIGHT foraminal stenosis at C4-5. 4. Moderate bilateral foraminal stenosis, RIGHT greater than LEFT at C3-4. 5. 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 All radiology interpretation(s) finalized by discharge EKG Data EKG 1: I personally reviewed and interpreted this EKG as follows: Interpretation: Contemporaneous review of EKG reveals ventricular to 75 bpm. NE interval is prolonged at 245 ms normal QRS duration, normal QT corrected. Normal axis. No acute ST-T wave changes. Consistent with a right bundle branch block. No other acute changes at this time. Discharge Plan Discharge Patient Disposition: Home Clinical Impression: Peripheral neuropathy Qualifiers: Peripheral neuropathy type: polyneuropathy, unspecified Qualified Code(s): G62.9 - Polyneuropathy, unspecified Carpal tunnel syndrome Qualifiers: Laterality: right Qualified Code(s): G56.01 - Carpal tunnel syndrome, right upper limb Condition: Stable Prescriptions: No Action oxycodone-acetaminophen 5-325 mg tablet 1 tab PO Q6H PRN (Reason: Moderate Pain) 7 Days Qty: 28 0RF methocarbamol 500 mg tablet 500 mg PO Q8H PRN (Reason: muscle spasm and pain) 14 Days Qty: 42 0RF atorvastatin 20 mg Tablet 20 mg PO QPM tamsulosin 0.4 mg Capsule 0.8 mg PO QPM lisinopril 10 mg Tablet 5 mg PO QPM Vitamin D3 50 mcg (2,000 unit) Capsule 50 mcg PO QPM Stool Softener-Laxative 8.6-50 mg Tablet 2 tab PO BID Qty: 30 0RF pantoprazole 40 mg Tablet,Delayed Release (Dr/Ec) 40 mg PO DAILY Qty: 30 0RF calcium carbonate-vitamin D3 600 mg-10 mcg (400 unit) Tablet 1 tab PO BID Qty: 60 0RF chlorhexidine gluconate 0.12 % Mouthwash 30 ml mucous membrane QID 30 Days Qty: 1500 1RF Ferrex 150 Forte 150-25-1 mg-mcg-mg capsule 1 cap PO DAILY Qty: 30 0RF ondansetron 4 mg tablet,disintegrating 4 mg PO DAILY PRN (Reason: nausea and vomiting) Qty: 30 0RF Discharge Orders: Discharge ED (Routine); Ordered 10/28/23 Ordered By: Marv Perez Discharge Diet: Usual diet Discharge Activity: Increase activity as tolerated Patient Instructions: Opioid Safety, Pain Management Activity Restrictions/Additional Instructions: As we discussed we think much of your symptoms is related to pressure on one of the nerves in your wrist called carpal tunnel syndrome. We recommend getting a neutral wrist splint at local pharmacy or medical supply and wear that at night to help reduce flexion of your wrist during sleeping and hopefully help improve your symptoms. If you start developing worsening symptoms weakness in your hand or arm or other concerning symptoms elsewhere then you should return to the emergency department. Coding Level of Care Code ED Russian Language Professor for Bethany Mccauley
--- NOTE | 2023-10-28 10:10 | ECG_ITS ---
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 Measurements Intervals [place] Rate: 75 P: 97 [place]: 245 QRS: -4 QRSD: 150 T: 21 QT: 379 QTc: 425 Interpretive Statements SINUS RHYTHM WITH FIRST DEGREE AV BLOCK WITH OCCASIONAL SUPRAVENTRICULAR PREMATURE COMPLEXES INDETERMINATE AXIS RIGHT BUNDLE BRANCH BLOCK [120+ ms QRS DURATION, UPRIGHT V1, 40+ ms S IN I/aVL/V4/V5/V6] Compared to ECG 09/12/2023 20:07:58 Indeterminate axis now present Sinus tachycardia no longer present Electronically Signed On 10-29-2023 0:30:04 CDT by Clari Cardona M.D. [id number]
== END 2023-10-28 12:19 | disposition home or self-care (01) ==
PROVIDERS: Emergency Provider Emergency Medicine
DX: G62.9 Polyneuropathy, unspecified (principal); G56.01 Carpal tunnel syndrome, right upper limb; I10 Essential (primary) hypertension; Z79.899 Other long term (current) drug therapy; Z87.891 Personal history of nicotine dependence
CPT/HCPCS: 72125; 93005; 99284

== ENCOUNTER → 2023-11-11 13:52 | Outpatient (BNVA) | payer MEDICARE, SELFPAY | PROVIDERS: Visit Provider Student in an Organized Health Care Education/Training Program | DX: Z96.642 Presence of left artificial hip joint (principal) | CPT/HCPCS: 73502; 99024 ==

== ENCOUNTER → 2024-09-14 14:26 | Outpatient (BNVA) | payer MEDICARE, SELFPAY | PROVIDERS: Visit Provider Student in an Organized Health Care Education/Training Program | DX: Z96.642 Presence of left artificial hip joint (principal) | CPT/HCPCS: 73502; 99213 ==

== ENCOUNTER → 2025-04-15 11:03 | Outpatient (BNVA) | payer OTHER, SELFPAY | PROVIDERS: Visit Provider Physician Assistant | DX: M16.11 Unilateral primary osteoarthritis, right hip (principal) | CPT/HCPCS: 73502; 99213 ==

== ENCOUNTER → 2025-04-29 07:45 | Outpatient (BNVA) | payer OTHER, SELFPAY | PROVIDERS: Visit Provider Student in an Organized Health Care Education/Training Program | DX: M16.11 Unilateral primary osteoarthritis, right hip (principal); Z71.89 Other specified counseling | CPT/HCPCS: 20610; 77002; J3301; J9999 ==